=== PATIENT | male | born 1935 | race Asian ===

== ENCOUNTER 2018-10-28 15:39 | Inpatient (IN) | payer OTHER, MEDICAID ==
[~2018-10-28] VITALS: Ht 177.8 cm; Wt 67.6 kg
--- NOTE | 2018-10-28 15:42 | NUR ---
PT BIBA TO BED 10.
[2018-10-28 15:44] VITALS: BP 125/51
--- NOTE | 2018-10-28 15:45 | NUR ---
PT BIBA FROM [facility] C/O CHEST PAIN SINCE 1PM TODAY. PT WITH HX OF DEMENTIA, PT STATES HE HAS PAIN BUT UNABLE TO ANSWER APPROPRIATELY THE LOCATION OF THE PAIN AND PAIN LEVEL. ORIENTED TO NAME AND DATE. PER EMS PT AT [facility]. NOTED LEFT SIDE WEAKNESS WITH PRIOR HX OF STROKE, EMS GIVEN DOSE OF NITRO AND IV FLUIDS, VVS, RR EVEN UNLABORED, ED MD DR. MONTEZ MADE AWARE, WILL CONTINUE TO MONITOR CLOSELY, BED IN LOWEST POSITION, BILATERAL SIDERAILS UP FOR SAFETY. PMH DEMENTIA, HTN, STROKE DNR
[2018-10-28] MEDS ORDERED: METO50TE2 GT (15:51)
[2018-10-28] MEDS ORDERED: DOXA2TAB1 PO (15:57)
[2018-10-28] MEDS ORDERED: CLOP75TA55 GT (15:58)
[2018-10-28] MEDS ORDERED: LOSA100T51 GT (15:59)
[2018-10-28] MEDS ORDERED: TRAZ-343 GT (15:59)
[2018-10-28] MEDS ORDERED: DOCU-299 GT (16:00)
[2018-10-28] MEDS ORDERED: ASPIRIN 81 MG TAB.CHEW PO ONE (16:30)
--- NOTE | 2018-10-28 16:39 | NUR ---
XRAY AT BEDSIDE
--- NOTE | 2018-10-28 16:41 | NUR ---
LAB AT BEDSIDE
--- NOTE | 2018-10-28 16:42 | NUR ---
LAB AT BEDSIDE FOR DRAW, RT AT BEDSIDE FOR ABG.
--- NOTE | 2018-10-28 16:42 | NUR ---
PT UNABLE TO URINATE ON HIS OWN, WILL PROCEDE WITH STRAIGHT CATH.
--- NOTE | 2018-10-28 16:57 | NUR ---
# 14 FR Urinary catheter inserted utilizing sterile technique. Immediate return of 100 ml YELLOW urine noted. Urine sample collected and sent to lab. Pt tolerated procedure WELL.
[2018-10-28 17:05] LABS: BASOPHILS % (AUTO) 0.5 % (0.0-2.0); EOSINOPHILS # (AUTO) 0.3 K/uL (0-0.4); EOSINOPHILS % (AUTO) 4.9 % (0.0-4.0); HEMATOCRIT 34.4 % (36-52); HEMOGLOBIN 11.5 g/dL (12.0-18.0); LYMPHOCYTES # (AUTO) 1.3 K/uL (2.0-11.5); LYMPHOCYTES % (AUTO) 18.9 % (20.5-51.1); MEAN CORPUSCULAR HEMOGLOBIN 32 pg (27-31); MEAN CORPUSCULAR HGB CONC 34 g/dL (33-37); MEAN CORPUSCULAR VOLUME 94.1 fL (80-94); MONOCYTES # (AUTO) 0.6 K/uL (0.8-1.0); MONOCYTES % (AUTO) 9.6 % (1.7-9.3); NEUTROPHILS # (AUTO) 4.4 K/uL (1.8-7.7); NEUTROPHILS % (AUTO) 66.1 % (42.2-75.2); PLATELET COUNT (AUTO) 206 K/uL (140-450); RED BLOOD CELL COUNT(AUTO) 3.65 MIL/uL (4.20-6.10); RED CELL DISTRIBUTION WIDTH 13.2 % (11.6-13.7); WHITE BLOOD COUNT (AUTO) 6.6 K/uL (4.8-10.8)
[2018-10-28 17:16] LABS: ANION GAP 7.8 (8-16); CHLORIDE 104 mmol/L (98-107); CREATININE 1.4 mg/dL (0.7-1.3); GLUCOSE 103 mg/dL (74-106); POTASSIUM 4.8 mmol/L (3.5-5.1); SODIUM SERUM 139 mmol/L (136-145); UREA NITROGEN, BLOOD 32 mg/dL (7-18)
[2018-10-28 17:22] LABS: ALBUMIN 3.2 g/dL (3.4-5.0); ASPARTATE AMINOTRANSFERASE 17 U/L (15-37); TOTAL BILIRUBIN 0.4 mg/dL (0.0-1.0)
--- NOTE | 2018-10-28 18:00 | NUR ---
PT IN BED ACCIDENTALLY PULLED OUT IV TO LEFT WRIST, ESTABLISHED NEW IV SITE TO RIGHT FOREARM, TOLERATED PROCEDURE WELL, PT IN STABLE CONDITION. WILL CONTINUE TO MONITOR CLOSELY.
[2018-10-28 18:16] LABS: APPEARANCE,URINE HAZY (CLEAR); BILIRUBIN,URINE NEGATIVE (NEGATIVE); BLOOD, URINE TRACE-I (NEGATIVE); COLOR,URINE YELLOW (YELLOW); LEUKOCYTE ESTERASE ,URINE 3+ (NEGATIVE); NITRITE, URINE POSITIVE (NEGATIVE); PH,URINE 7.5 (5.0-9.0); UGLUCOSE NEGATIVE (NEGATIVE)
[2018-10-28] MEDS ORDERED: FAMOTIDINE 20 MG/2 ML VIAL IV PRN (18:25)
[2018-10-28] MEDS ORDERED: ONDANSETRON 4 MG/2 ML VIAL IM/IVP PRN (18:25)
[2018-10-28] MEDS ORDERED: DOCUSATE SODIUM 100 MG GELCAP PO PRN (18:25)
[2018-10-28] MEDS ORDERED: ACETAMINOPHEN 325 MG TAB PO PRN (18:25)
[2018-10-28 18:34] LABS: RBC,URINE 0-5 /HPF (0-5); WBC,URINE TOO MANY TO COUNT /HPF (0-5)
[2018-10-28] MEDS ORDERED: MELATONIN 3 MG TAB PO PRN (18:40)
[2018-10-28] MEDS ORDERED: MEDICATION REC. PHARMACY CONS. 1 EA MISC MC PRN (18:40)
[2018-10-28 19:01] LABS: CHOL/HDL RATIO 4.7 (1-4.5); FREE T4 (FREE THYROXINE) 0.88 ng/dL (0.76-1.46); MAGNESIUM 2.1 mg/dL (1.8-2.4); PHOSPHORUS 4.2 mg/dL (2.5-4.9); THYROID STIMULATING HORMONE 0.21 uIU/mL (0.34-3.74)
--- NOTE | 2018-10-28 19:10 | NUR ---
PT RESTING IN BED, VVS AT THIS TIME. WILL CONTINUE TO MONITOR CLOSELY.
--- NOTE | 2018-10-28 19:25 | NUR ---
Patient will be admitted to care of DR. IMLES. Admited to [facility]. Will go to room 110A. Belongings list completed. BEDSIDE Report GIVEN to LUÍS MARROQUIN.
--- NOTE | 2018-10-28 19:30 | NUR ---
RECEIVED BEDSIDE REPORT FROM WANT AD RECEIVER, PATIENT AWAKE, AAOX1 TO PERSON. IV IN RIGHT FA 20 G SL. PATIENT UNABLE TO MAKE NEEDS KNOWN. LUNG SOUNDS CLEAR, SB ON TELE MONITOR, SKIN INTACT, G-TUBE IN PLACE. V/S STABLE, ON RA. LEFT SIDED WEAKNESS NOTED. PLACED ON FALL PRECAUTIONS, BED IN LOWEST POSITION. WILL CONTINUE TO MONITOR.
[2018-10-28] MEDS ORDERED: METOPROLOL 25 MG TAB GT SCH (21:00)
[2018-10-28] MEDS ORDERED: DOCUSATE SODIUM 100 MG GELCAP PO SCH (21:00)
[2018-10-28] MEDS ORDERED: LACTOBACILLUS RHAMNOSUS GG 1 EACH CAP PO SCH (21:00)
[2018-10-28] MEDS ORDERED: LACTOBACILLUS RHAMNOSUS GG 1 EACH CAP GT SCH (21:30)
--- NOTE | 2018-10-28 21:30 | NUR ---
DUE MEDICATIONS PROVIDED, EDUCATION REGARDING SIDE EFFECTS GIVEN
[2018-10-28] MEDS: NACL 0.9% 1,000 ML IV SCH (21:34)
[2018-10-28] MEDS: DOCUSATE 100 MG/10 ML UDC GT SCH (21:34)
[2018-10-28] MEDS ORDERED: cefTRIAXone 1,000 MG VIAL ONE (21:43)
--- NOTE | 2018-10-28 22:30 | NUR ---
CALLED [facility] SPOKE WITH CHARGE NURSE KAYLA REGARDING PATIENTS HISTORY. ACCORDING TO RN JUANI PATIENTS VACCINATION STATUS, HISTORY OF INFECTIOUS DISEASE, HISTORY OF BLOOD TRANSFUSION, FALLS, SPIRITUAL CONSIDERATIONS IS UNKNOWN
[2018-10-29] VITALS: BP 130/58
--- NOTE | 2018-10-29 | NUR ---
INCREASED FEEDING TO 25 ML/HR PATIENT TOLERATING WELL
--- NOTE | 2018-10-29 02:00 | NUR ---
SLEEPING CALL LIGHT WITHIN REACH
[2018-10-29 04:00] VITALS: BP 127/41
[2018-10-29 06:57] LABS: BASOPHILS % (AUTO) 0.6 % (0.0-2.0); EOSINOPHILS # (AUTO) 0.3 K/uL (0-0.4); HEMATOCRIT 35.4 % (36-52); HEMOGLOBIN 12.1 g/dL (12.0-18.0); LYMPHOCYTES # (AUTO) 1.5 K/uL (2.0-11.5); MEAN CORPUSCULAR HEMOGLOBIN 32 pg (27-31); MEAN CORPUSCULAR HGB CONC 34 g/dL (33-37); MEAN CORPUSCULAR VOLUME 93.6 fL (80-94); MONOCYTES # (AUTO) 0.8 K/uL (0.8-1.0); MONOCYTES % (AUTO) 9.9 % (1.7-9.3); NEUTROPHILS # (AUTO) 5.2 K/uL (1.8-7.7); NEUTROPHILS % (AUTO) 66.5 % (42.2-75.2); PLATELET COUNT (AUTO) 210 K/uL (140-450); RED BLOOD CELL COUNT(AUTO) 3.78 MIL/uL (4.20-6.10); RED CELL DISTRIBUTION WIDTH 13.2 % (11.6-13.7); WHITE BLOOD COUNT (AUTO) 7.9 K/uL (4.8-10.8)
--- NOTE | 2018-10-29 07:00 | NUR ---
WILL ENDORSED PATIENT TO DAY SHIFT NURSE, PATIENT STABLE.
[2018-10-29 07:03] LABS: ANION GAP 12.7 (8-16); CARBON DIOXIDE 27.7 mmol/L (21-32); CHLORIDE 103 mmol/L (98-107); CREATININE 1.2 mg/dL (0.7-1.3); GLUCOSE 120 mg/dL (74-106); POTASSIUM 4.4 mmol/L (3.5-5.1); SODIUM SERUM 139 mmol/L (136-145); UREA NITROGEN, BLOOD 27 mg/dL (7-18)
--- NOTE | 2018-10-29 07:25 | NUR ---
RECEIVED BEDSIDE REPORT FROM WORKFORCE STAFFING ADVISOR NURSE FOR CONTINUITY OF CARE. PATIENT AWAKE AND RESTING ON BED. PATIENT PULLED OFF HIS GOWN, INSTRUCTED PATIENT NOT TO TAKE OFF HIS GOWN FOR PRIVACY. PATIENT IS AAOX2 TO NAME, AND PLACE. PT SPEAKS MALAY AND ABLE TO UNDERSTAND SOME LAO. PATIENT HAS HARD OF HEARING, WILL POST SIGN. FLACC 0. RESPIRATION EVEN AND UNLABORED ON RA. NO SIGNS OF DISTRESS NOTED. IV ON RFA 20G, CLEAN AND INTACT, INFUSING PER MD ORDER. G-TUBE IN PLACE, AND JEVITY 1.2 RUNNING AT 40 ML/HR. SKIN CLEAN AND DRY. DUE TO PATIENT'S MENTAL STATUS CONDITION, PATIENT IS BEDREST AND FALL RISK PROTOCOL INITIALED. PATIENT IS INCONTINENT. DISCUSSED PLAN OF CARE WITH PATIENT, REINFORCEMENT NEEDED. SAFETY MEASURES IN PLACE. BED IN LOW POSITION AND CALL LIGHT WITHIN REACH. BED ALARM MALFUNCTIONED. TELE MONITOR ATTACHED. INSTRUCTED PATIENT TO USE THE CALL LIGHT FOR ANY ASSISTANCE AND PATIENT VERBALIZED OK.
[2018-10-29 08:00] VITALS: BP 180/86
[2018-10-29] MEDS: LACTOBACILLUS RHAMNOSUS GG 1 EACH CAP GT SCH ×2 (08:04→21:57)
[2018-10-29] MEDS: LOSARTAN 50 MG TAB GT SCH (08:04)
[2018-10-29] MEDS: DOCUSATE 100 MG/10 ML UDC GT SCH ×2 (08:04→21:56)
[2018-10-29] MEDS: DOXAZOSIN 2 MG TAB PO SCH (08:05)
[2018-10-29] MEDS: CLOPIDOGREL 75 MG TAB GT SCH (08:05)
[2018-10-29] MEDS: traZODone 50 MG TAB GT SCH (08:05)
--- NOTE | 2018-10-29 08:06 | NUR ---
CHECKED VITAL SIGNS, AND PT'S BP 180/86 AND PULSE. ADMINISTERED AM BP [place] MED AND AM MEDS PER MD ORDER VIA G-TUBE, CHECKED G-TUBE RESIDUAL AND RECEIVED 20ML, FLUSHED BEFORE AND AFTER MEDS ADMINISTRATION, PATIENT TOLERATED WELL. MEDS EDUCATION PROVIDED AT BEDSIDE, BUT PT UNABLE TO COMPREHEND AND REINFORCEMENT NEEDED. SAFETY MEASURES IN PLACE. BED IN LOW POSITION AND CALL LIGHT WITHIN REACH. BED ALARM MALFUNCTION. TELE MONITOR ATTACHED.
--- NOTE | 2018-10-29 08:12 | NUR ---
NOTIFIED DR ALANIZ THAT PT HAS HIGH BP 180/86 AND PULSE 81, AND PT HAS TWO ORDER OF COLACE, ONE IS PO 100 MG, AND ANOTHER IN LIQUID [address] ALANIZ WAS AWARE OF HIGH BP. PER DR ALANIZ, GIVE THE COLACE 100 MG LIQUID VIA G-TUBE AND SHE WILL CANCEL THE DUPLICATE ORDER FOR PO. WILL ADMINISTER AM BP MEDS PER MD ORDER.
[2018-10-29 08:17] LABS: FOLIC ACID > 20.00 ng/mL (>3.0)
--- NOTE | 2018-10-29 08:19 | NUR ---
DR BRYANT IS ASSESSING AND TALKING TO PATIENT AT BEDSIDE. NO SIGNS OF DISTRESS NOTED. SAFETY MEASURES IN PLACE. TELE MONITOR ATTACHED.
--- NOTE | 2018-10-29 08:46 | NUR ---
PATIENT HAS BEEN SCREENED AND CATEGORIZED HIGH NUTRITION RISK. PATIENT WILL BE SEEN WITHIN 1-2 DAYS OF ADMISSION. 10/29/18-10/30/[address]
--- NOTE | 2018-10-29 09:35 | NUR ---
RECHECKED PT'S BP AND RECEIVED 142/70 PULSE 75, PT AWAKE AND RESTING ON BED AT THIS TIME. RESPIRATION EVEN AND UNLABORED ON RA. FLACC 0. NO SIGNS OF DISTRESS NOTED. SAFETY MEASURE IN PLACE. BED IN LOW POSITION AND CALL LIGHT WITHIN REACH. TELE MONITOR ATTACHED.
[2018-10-29] MEDS ORDERED: METOPROLOL 25 MG TAB GT SCH (10:43)
[2018-10-29] MEDS: NACL 0.9% 1,000 ML IV SCH (11:04)
--- NOTE | 2018-10-29 11:04 | NUR ---
CHECKED PT'S BP AND RECEIVED 137/66 PULSE 64, ADMINISTERED MED PER MD ORDER VIA G-TUBE,FLUSHED BEFORE AND AFTER MED ADMINISTERED. PATIENT TOLERATED WELL. PATIENT AWAKE AND RESTING ON BED AT THIS. NO SIGN OF DISTRESS NOTED. SAFETY MEASURES IN PLACE. BED IN LOW POSITION AND CALL LIGHT WITHIN REACH. TELE MONITOR ATTACHED.
[2018-10-29 12:00] VITALS: BP 149/61
--- NOTE | 2018-10-29 13:25 | NUR ---
PATIENT RESTING ON BED. AROUSABLE TO VOICE. EVEN AND UNLABORED CHEST RISES NOTED. NO SIGNS OF DISTRESS NOTED. TELE MONITOR IN PLACE. BED IN LOW POSITION AND CALL LIGHT WITHIN REACH.
--- NOTE | 2018-10-29 15:08 | NUR ---
S.T. BEDSIDE SWALLOW EVAL COMPLETED See report for details. Pt presents w/ moderate oropharyngeal dysphagia c/b L facial droop and weakness, inadequate mastication of soft solids with pocketing on L side and diminished sensation of L face, delayed pharyngeal swallow initiation and residue after swallow on L side of face and oral cavity. Behaviorally, pt is confused and both uninterested and refuses P.O. trials. It is doubtful pt will be able to maintain P.O. intake on a regular basis in a safe manner. Recommend: 1) Continue non-oral means of nutrition/hydration/meds (i.e., G-tube) as primary means of intake. 2) Small amounts of puree and/or thin liquids for ORAL GRATIFICATION ONLY; given by 1:1 feeder (nsg) with strict aspiration precautions. Pt demonstrates poor rehab potential. No further tx indicated at this time. DC to nsg care. Endorsed to LUÍS Pandya. Time [id number]
--- NOTE | 2018-10-29 15:50 | NUR ---
FOUND PATIENT SITTING ON THE FLOOR WITH HAND HOLDING THE SIDE RAIL. ASSESSED PATIENT'S BACK AND SACRAL AREA AND NO INJURY FOUND. POSITIONED PATIENT BACK ON BED, EDUCATION PT NOT TO GET OUT OF BED DUE TO UNSTEADY GAIT, PATIENT SAID OK. VITAL SIGNS TAKEN. DR ALANIZ NOTIFIED. REFEREED TO INCIDENT REPORT.
[2018-10-29 16:00] VITALS: BP 154/56
--- NOTE | 2018-10-29 16:10 | NUR ---
NOTIFIED PATIENT'S DAUGHTER DAVID ON REGARD OF INCIDENT. DAVID WAS AWARE. ANSWERED ALL DAVID'S QUESTIONS.
--- NOTE | 2018-10-29 16:45 | NUR ---
PATIENT AWAKE AND RESTING ON BED. RESPIRATION EVEN AND UNLABORED ON RA. DENIED PAIN AND DIZZINESS. NO SIGNS OF DISTRESS NOTED. G-TUBE IS RUNNING AT 65 ML/HR. TELE MONITOR ATTACHED. SAFETY MEASURES IN PLACE. BED IN LOW POSITION AND CALL LIGHT WITHIN REACH. BED ALARM ACTIVATED.
--- NOTE | 2018-10-29 17:40 | NUR ---
PATIENT AWAKE ON BED. DENIED PAIN AND NAUSEA, VOMITING. CHECKED G-TUBE RESIDUAL AND RECEIVED < 10ML. CONTINUE RUNNING AT 65 ML/HR. NO SIGNS OF DISTRESS NOTED. SAFETY MEASURES IN PLACE. BED IN LOW POSITION AND CALL LIGHT WITHIN REACH. BED ALARM ACTIVATED.
--- NOTE | 2018-10-29 19:25 | NUR ---
RECEIVED BEDSIDE REPORT FROM DAY SHIFT NURSE FOR CONTINUITY OF CARE. PATIENT AWAKE AND RESTING ON BED. PATIENT IS AAOX2 TO NAME, AND PLACE. PT SPEAKS [place] AND ABLE TO UNDERSTAND SOME LIBERIAN. PATIENT HAS HARD OF HEARING, FLACC 0. NO S/S OF SOB ON RA. IV ON RFA 20G, PATENT, INTACT, AND ASYMPTOMATIC. G-TUBE IN PLACE, AND JEVITY 1.2 RUNNING AT 65 ML/HR. SKIN INTACT, WARM AND DRY TO TOUCH. FALL RISK PROTOCOL IN PLACE. PATIENT IS INCONTINENT. SAFETY MEASURES IN PLACE. BED IN LOW POSITION AND CALL LIGHT WITHIN REACH. INSTRUCTED PATIENT TO USE THE CALL LIGHT FOR ANY ASSISTANCE.
--- NOTE | 2018-10-29 19:30 | NUR ---
ENDORSED PATIENT AT BEDSIDE TO V BELT COVERER NURSE FOR CONTINUITY OF CARE. PATIENT AWAKE AND RESTING ON BED AT THIS TIME. AROOUSABLE TO VOICE. NO SIGNS OF DISTRESS NOTED. TELE MONITOR ATTACHED. PATIENT IS IN STABLE CONDITION. SAFETY MEASURES IN PLACE. BED IN LOW POSITION AND CALL LIGHT WITHIN REACH. BED ALARM ACTIVATED.
[2018-10-29 20:00] VITALS: BP 164/67
--- NOTE | 2018-10-29 21:56 | NUR ---
GIVEN COLACE, CULTURELLE, METOPROLOL, AND ROCEPHIN ORDERED. PT TOLERATED WELL. WILL CONTINUE TO MONITOR.
[2018-10-29] MEDS: METOPROLOL 25 MG TAB GT SCH (21:57)
--- NOTE | 2018-10-29 23:55 | NUR ---
VS CHECKED, WITHIN PT'S BASELINE. BED IN LOW POSITION, CALL LIGHT WITHIN REACH. WILL CONTINUE TO MONITOR.
[2018-10-30] VITALS: BP 150/57
--- NOTE | 2018-10-30 01:55 | NUR ---
PT SLEEPING IN BED COMFORTABLY. NO ACUTE DISTRESS NOTED. BED IN LOW POSITION. WILL CONTINUE TO MONITOR.
[2018-10-30] MEDS: NACL 0.9% 1,000 ML IV SCH (03:43)
[2018-10-30 04:00] VITALS: BP 159/92
--- NOTE | 2018-10-30 04:00 | NUR ---
VS CHECKED, WITHIN PT'S BASELINE, CHANGED GTUBE FORMULA, 30ML OF RESIDUAL NOTED. PT TOLERATED WELL.
--- NOTE | 2018-10-30 06:31 | NUR ---
PT SLEEPING IN BED COMFORTABLY. NO S/S OF SOB NOTED. BED IN LOW POSITION.
--- NOTE | 2018-10-30 07:15 | NUR ---
RECEIVED ENDORSEMENT FROM ASSOCIATE ATTORNEY NURSE. PATIENT IS AAOX1, BULGARIAN SPEAKING. RESPIRATIONS ARE EVEN AND UNLABORED ON ROOM AIR. FLACC 0. G-TUBE INTACT, PATENT, AND INFUSING CONTINUOS FEEDING. RIGHT FA 20G IV INTACT, PATENT, AND INFUSING IVF. PLAN OF CARE WAS REVIEWED WITH PATIENT, PATIENT VERBALIZED UNDERSTANDING. SAFETY MEASURES IN PLACE, CALL LIGHT WITHIN REACH. Addendum: 10/30/18 at 1107 by Anais Perdomo RN *PATIENT UNABLE TO VERBALIZE UNDERSTANDING.
[2018-10-30 07:41] LABS: BASOPHILS % (AUTO) 0.6 % (0.0-2.0); EOSINOPHILS # (AUTO) 0.2 K/uL (0-0.4); EOSINOPHILS % (AUTO) 3.8 % (0.0-4.0); HEMOGLOBIN 11.4 g/dL (12.0-18.0); LYMPHOCYTES % (AUTO) 17.3 % (20.5-51.1); MEAN CORPUSCULAR HEMOGLOBIN 32 pg (27-31); MEAN CORPUSCULAR HGB CONC 34 g/dL (33-37); MEAN CORPUSCULAR VOLUME 93.2 fL (80-94); MONOCYTES # (AUTO) 0.6 K/uL (0.8-1.0); MONOCYTES % (AUTO) 9.9 % (1.7-9.3); NEUTROPHILS # (AUTO) 3.9 K/uL (1.8-7.7); NEUTROPHILS % (AUTO) 68.4 % (42.2-75.2); PLATELET COUNT (AUTO) 194 K/uL (140-450); RED BLOOD CELL COUNT(AUTO) 3.54 MIL/uL (4.20-6.10); RED CELL DISTRIBUTION WIDTH 13.4 % (11.6-13.7); WHITE BLOOD COUNT (AUTO) 5.8 K/uL (4.8-10.8)
[2018-10-30 07:46] LABS: ANION GAP 12.1 (8-16); CARBON DIOXIDE 26.2 mmol/L (21-32); CHLORIDE 106 mmol/L (98-107); CREATININE 1.1 mg/dL (0.7-1.3); GLUCOSE 119 mg/dL (74-106); POTASSIUM 4.3 mmol/L (3.5-5.1); SODIUM SERUM 140 mmol/L (136-145); UREA NITROGEN, BLOOD 22 mg/dL (7-18)
[2018-10-30 08:00] VITALS: BP 137/67
[2018-10-30 08:04] LABS: MAGNESIUM 2.1 mg/dL (1.8-2.4); PHOSPHORUS 3.7 mg/dL (2.5-4.9)
[2018-10-30] MEDS ORDERED: METOPROLOL 25 MG TAB GT SCH (09:00)
[2018-10-30] MEDS: LACTOBACILLUS RHAMNOSUS GG 1 EACH CAP GT SCH ×2 (09:27→21:25)
[2018-10-30] MEDS: DOXAZOSIN 2 MG TAB PO SCH (09:27)
[2018-10-30] MEDS: traZODone 50 MG TAB GT SCH (09:28)
[2018-10-30] MEDS: METOPROLOL 25 MG TAB GT SCH ×2 (09:28→21:25)
[2018-10-30] MEDS: CLOPIDOGREL 75 MG TAB GT SCH (09:28)
[2018-10-30] MEDS: DOCUSATE 100 MG/10 ML UDC GT SCH ×2 (09:29→21:25)
[2018-10-30] MEDS: LOSARTAN 50 MG TAB GT SCH (09:36)
--- NOTE | 2018-10-30 09:37 | NUR ---
ADMINISTERED SCHEDULED MEDICATIONS. G-TUBE RESIDUAL NONE. PATIENT TOLERATING WELL. PATIENT TOLERATING WELL. NO OTHER NEEDS AT THIS TIME, WILL CONTINUE TO MONITOR.
--- NOTE | 2018-10-30 11:36 | NUR ---
PATIENT SLEEPING. VISIBLE RISE AND FALL OF CHEST. FLACC 0. NO OTHER NEEDS AT THIS TIME, WILL CONTINUE TO MONITOR.
--- NOTE | 2018-10-30 13:05 | NUR ---
PATIENT SLEEPING. VISIBLE RISE AND FALL OF CHEST. FLACC 0. NO OTHER NEEDS AT THIS TIME, WILL CONTINUE TO MONITOR.
--- NOTE | 2018-10-30 13:28 | NUR ---
10/30/18 RD INITIAL ASSESSMENT COMPLETED PLEASE REFER TO NUTRITION ASSESSMENT UNDER CARE ACTIVITY FOR ESTIMATED NUTRITIONAL NEEDS. 1. CONTINUE JEVITY @ 65 ML/HR X 24HR -THIS IS PROVIDING 1560 ML, 1872 KCAL, 86 GM OF PROTEIN 2. CONTINUE FREE WATER FLUSH OF [address] TO FOLLOW-UP 2-3 DAYS, HIGH RISK VIKRAM JOYNER, RD
--- NOTE | 2018-10-30 15:10 | NUR ---
PATIENT MOVED TO DIFFERENT ROOM. PATIENT ATTEMPTING TO GET UP. REMINDED PATIENT TO STAY IN BED. BED ALARM IS ON. FLACC 0. NO OTHER NEEDS AT THIS TIME, WILL CONTINUE TO MONITOR.
--- NOTE | 2018-10-30 15:40 | NUR ---
D/C PLANNING RECEIVED D/C ORDER TO D/C PATIENT BACK TO [facility] FOR D/C PLAN TOMORROW 10/31/18. [place] [facility] [place] # [phone] PHONE NUMBER IS [phone]. AWAITING REVIEW AND [place] [facility] [place]
[2018-10-30 16:00] VITALS: BP 155/59
--- NOTE | 2018-10-30 17:56 | NUR ---
PATIENT SLEEPING, EASILY AROUSABLE. FLACC 0. NO OTHER NEEDS AT THIS TIME, WILL CONTINUE TO MONITOR.
--- NOTE | 2018-10-30 19:22 | NUR ---
RECEIVED PATIENT REPORT AT BEDSIDE. PATIENT IS ASLEEP BUT IS EASILY AROUSABLE. PT ON ROOM AIR. NO S/S OF DISTRESS AT THIS TIME. G-TUBE WITH CONTINUOUS FEEDING IN PLACE. BED LOWERED WITH CALL LIGHT WITHIN REACH. WILL CONTINUE TO MONITOR
--- NOTE | 2018-10-30 19:22 | NUR ---
ENDORSED TO SLAT PICKLER NURSE FOR CONTINUITY OF CARE. PATIENT IS STABLE AT THIS TIME.
[2018-10-30 20:00] VITALS: BP 145/95
--- NOTE | 2018-10-30 21:25 | NUR ---
ADMINISTERED MEDICATIONS VIA G-TUBE. NO RESIDUALS NOTED. PT TOLERATED WELL
--- NOTE | 2018-10-31 02:52 | NUR ---
PT ASLEEP IN BED. NO S/S OF DISTRESS NOTED
[2018-10-31] MEDS: NACL 0.9% 1,000 ML IV SCH ×3 (04:05→21:38)
[2018-10-31 04:11] VITALS: BP 151/78
--- NOTE | 2018-10-31 05:00 | NUR ---
RECEIVED PT FROM LATESHA STALEY PT IA AOX1 LEFT SIDE WEAKNES IV ON RT AC # 20 SPONGE BATH DONE REPOSITIONED INITIAL ASSESSMENT DONE
--- NOTE | 2018-10-31 06:54 | NUR ---
PT WILL BE ENDORSED TO DAY SHIFT NURSE FOR CONTINUE CARE
--- NOTE | 2018-10-31 07:25 | NUR ---
RECEIVED BEDSIDE REPORT FROM LUÍS BERG. PT STABLE, SLEEPING, BUT EASILY AROUSABLE. NO SIGNS OF DISTRESS NOTED. NO REDNESS, SWELLING, OR INFLAMMATION NOTED ON IV SITE. CALL BALL WITHIN REACH. BED IN LOWEST POSITION, BED ALARM ON. 1:1 SITTER AT THE BEDSIDE. SAFETY MEASURES IN PLACE. PLAN OF CARE REVIEWED.
[2018-10-31 08:00] VITALS: BP 158/59
--- NOTE | 2018-10-31 08:20 | NUR ---
SPOKE WITH PT'S DAUGHTER ON THE TELEPHONE REGARDING PT'S PLAN OF CARE.
[2018-10-31] MEDS: DOCUSATE 100 MG/10 ML UDC GT SCH ×2 (10:07→20:23)
[2018-10-31] MEDS: LOSARTAN 50 MG TAB GT SCH (10:07)
[2018-10-31] MEDS: traZODone 50 MG TAB GT SCH (10:08)
[2018-10-31] MEDS: CLOPIDOGREL 75 MG TAB GT SCH (10:08)
[2018-10-31] MEDS: METOPROLOL 25 MG TAB GT SCH ×2 (10:09→21:00)
[2018-10-31] MEDS: DOXAZOSIN 2 MG TAB PO SCH (10:10)
--- NOTE | 2018-10-31 10:40 | NUR ---
NO RESIDUAL ASPIRATED FROM G-TUBE. ADMINISTERED SCHEDULED MEDICATIONS, PT TOLERATED WELL. NO OTHER NEEDS AT THIS TIME. Addendum: 10/31/18 at 1056 by Kirsten Pierson RN HR RECHECKED, 65.
[2018-10-31] MEDS: LACTOBACILLUS RHAMNOSUS GG 1 EACH CAP GT SCH ×2 (10:42→20:23)
[2018-10-31 10:58] LABS: BASOPHILS % (AUTO) 0.4 % (0.0-2.0); EOSINOPHILS # (AUTO) 0.2 K/uL (0-0.4); EOSINOPHILS % (AUTO) 3.6 % (0.0-4.0); HEMATOCRIT 32.9 % (36-52); HEMOGLOBIN 11.2 g/dL (12.0-18.0); LYMPHOCYTES # (AUTO) 1.2 K/uL (2.0-11.5); LYMPHOCYTES % (AUTO) 19.9 % (20.5-51.1); MEAN CORPUSCULAR HEMOGLOBIN 32 pg (27-31); MEAN CORPUSCULAR HGB CONC 34 g/dL (33-37); MEAN CORPUSCULAR VOLUME 93.9 fL (80-94); MONOCYTES # (AUTO) 0.5 K/uL (0.8-1.0); MONOCYTES % (AUTO) 9.1 % (1.7-9.3); NEUTROPHILS # (AUTO) 3.9 K/uL (1.8-7.7); PLATELET COUNT (AUTO) 192 K/uL (140-450); WHITE BLOOD COUNT (AUTO) 5.8 K/uL (4.8-10.8)
--- NOTE | 2018-10-31 11:45 | NUR ---
PER ANDREW, CONFIRMED [facility] BED 30B FOR TRANSFER BACK TOMORROW WEDNESDAY 11/01.
--- NOTE | 2018-10-31 12:05 | NUR ---
PT STABLE, SLEEPING, BUT EASILY AROUSABLE. NO SIGNS OF DISTRESS NOTED.
[2018-10-31 12:11] LABS: ANION GAP 13.8 (8-16); CARBON DIOXIDE 25.6 mmol/L (21-32); CHLORIDE 105 mmol/L (98-107); CREATININE 1.1 mg/dL (0.7-1.3); GLUCOSE 131 mg/dL (74-106); POTASSIUM 4.4 mmol/L (3.5-5.1); SODIUM SERUM 140 mmol/L (136-145); UREA NITROGEN, BLOOD 21 mg/dL (7-18)
--- NOTE | 2018-10-31 14:23 | NUR ---
PT REPOSITIONED, LINENS AND GOWN CHANGED. PT STABLE.
[2018-10-31 16:00] VITALS: BP 108/72
--- NOTE | 2018-10-31 16:20 | NUR ---
VITAL SIGNS TAKEN, PT STABLE. NO SIGNS OF DISTRESS NOTED.
[2018-10-31] MEDS ORDERED: LEVOFLOXACIN 500 MG/D5W PREMIX 100 ML IV SCH (18:00)
--- NOTE | 2018-10-31 18:48 | NUR ---
TUBE FEEDING CHANGED. ADMINISTERED SCHEDULED LEVAQUIN PER MD ORDER, PT TOLERATED WELL. NO OTHER NEEDS AT THIS TIME.
--- NOTE | 2018-10-31 19:13 | NUR ---
ENDORSED PT TO LUÍS LANDIS FOR CONTINUITY OF CARE. PT STABLE.
--- NOTE | 2018-10-31 19:15 | NUR ---
RECEIVED REPORT FROM DAY SHIFT NURSE. AAOX1. NO C/O PAIN. NO RESP DISTRESS NOTED. ON ROOM AIR. IV TO RIGHT AC #20G, PATENT AND INTACT. G-TUBE IN PLACE WITH FEEDING JEVITY 1.2 AT 65 ML/HR, INFUSING WELL. FALL PRECAUTION IN PLACE. SITTER AT BEDSIDE.
[2018-10-31 20:00] VITALS: BP 162/55
--- NOTE | 2018-10-31 21:00 | NUR ---
PT'S V/S 162/55, HR 52. DR. WOMACK MADE AWARE AND ORDERED TO HOLD LOPRESSOR 25 MG PO DUE AT 2100.
--- NOTE | 2018-10-31 21:30 | NUR ---
GT RESIDUAL 0 ML. DUE MEDS GIVEN. PT TOLERATED WELL. ASPIRATION AND FALL PRECAUTION IN PLACE.
[2018-11-01 00:30] VITALS: BP 176/65
--- NOTE | 2018-11-01 00:50 | NUR ---
PT BP 176/65, HR 60. DR. WOMACK MADE AWARE, NO NEW ORDER. FLACC 0. NO RESP DISTRESS NOTED.
--- NOTE | 2018-11-01 03:20 | NUR ---
PT SLEEPING BUT WAKES EASILY. PT TOLERATING FEEDING WELL. PT KEPT DRY AND COMFORTABLE. NO S/S OF PAIN OR SOB. ASPIRATION AND FALL PRECAUTION IN PLACE. CALL LIGHT WITHIN REACH.
--- NOTE | 2018-11-01 05:45 | NUR ---
RIGHT FA IV INFILTRATED. REMOVED CANNULA, TIP INTACT. INSERTED NEW IV LINE TO RIGHT HAND #22G. GOOD FLUSH AND BLOOD RETURN. PT TOLERATED PROCEDURE WELL.
--- NOTE | 2018-11-01 07:20 | NUR ---
RECEIVED REPORT FROM CAGE SHIFT MANAGER NURSE. PATIENT IS SLEEPING IN BED, ON ROOM AIR. NO SIGNS OF RESPIRATORY DISTRESS. A&O X1. IV TO RIGHT HAND 22G WITH NS RUNNING @60ML/HR. WILL CONTINUE TO MONITOR.
--- NOTE | 2018-11-01 07:20 | NUR ---
ENDORSED PT TO DAY SHIFT NURSE. PT IN STABLE CONDITION.
[2018-11-01 08:00] VITALS: BP 167/58
--- NOTE | 2018-11-01 08:00 | NUR ---
Received report from LUÍS Zapien. Pt resting in bed, HOB about 30, ongoing GT feeding Jevity @ 65ml/hr. Right hand IV intact with ongoing NS @ 60 ml/hr. Call light within reach.
[2018-11-01] MEDS: DOXAZOSIN 2 MG TAB PO SCH (09:09)
[2018-11-01] MEDS: DOCUSATE 100 MG/10 ML UDC GT SCH (09:09)
[2018-11-01] MEDS: traZODone 50 MG TAB GT SCH (09:09)
[2018-11-01] MEDS: LACTOBACILLUS RHAMNOSUS GG 1 EACH CAP GT SCH (09:10)
[2018-11-01] MEDS: CLOPIDOGREL 75 MG TAB GT SCH (09:10)
[2018-11-01] MEDS: LOSARTAN 50 MG TAB GT SCH (09:10)
[2018-11-01] MEDS: METOPROLOL 25 MG TAB GT SCH (09:10)
--- NOTE | 2018-11-01 09:15 | NUR ---
Daughter at bedside states that pt yelled in pain when she moved the pt's left wrist. Lef hand & wrist with mild swelling, slight wincing noted with gentle PROM. Dr Jimenes notified. Per physician, he will come to see pt.
[2018-11-01] MEDS ORDERED: METO25TA GT (10:02)
[2018-11-01] MEDS ORDERED: LACT10CA GT (10:02)
[2018-11-01] MEDS ORDERED: LEVO500T2 PO (10:02)
[2018-11-01 10:04] LABS: BASOPHILS % (AUTO) 0.5 % (0.0-2.0); EOSINOPHILS # (AUTO) 0.1 K/uL (0-0.4); EOSINOPHILS % (AUTO) 1.7 % (0.0-4.0); HEMATOCRIT 32.6 % (36-52); HEMOGLOBIN 11.2 g/dL (12.0-18.0); LYMPHOCYTES # (AUTO) 1.2 K/uL (2.0-11.5); LYMPHOCYTES % (AUTO) 16.1 % (20.5-51.1); MEAN CORPUSCULAR HEMOGLOBIN 32 pg (27-31); MEAN CORPUSCULAR HGB CONC 34 g/dL (33-37); MEAN CORPUSCULAR VOLUME 93.5 fL (80-94); MONOCYTES # (AUTO) 0.7 K/uL (0.8-1.0); MONOCYTES % (AUTO) 9.9 % (1.7-9.3); NEUTROPHILS # (AUTO) 5.2 K/uL (1.8-7.7); NEUTROPHILS % (AUTO) 71.8 % (42.2-75.2); PLATELET COUNT (AUTO) 172 K/uL (140-450); RED BLOOD CELL COUNT(AUTO) 3.49 MIL/uL (4.20-6.10); RED CELL DISTRIBUTION WIDTH 13.2 % (11.6-13.7); WHITE BLOOD COUNT (AUTO) 7.2 K/uL (4.8-10.8)
[2018-11-01] MEDS ORDERED: ACET-1182 PO (10:06)
--- NOTE | 2018-11-01 10:30 | NUR ---
Left wrist & hand splinted with armboard. Pt denies any discomfort at this time.
[2018-11-01 10:34] LABS: ANION GAP 11.7 (8-16); CARBON DIOXIDE 25.4 mmol/L (21-32); CHLORIDE 105 mmol/L (98-107); CREATININE 1.1 mg/dL (0.7-1.3); GLUCOSE 130 mg/dL (74-106); POTASSIUM 4.1 mmol/L (3.5-5.1); SODIUM SERUM 138 mmol/L (136-145); UREA NITROGEN, BLOOD 18 mg/dL (7-18)
[2018-11-01] MEDS ORDERED: HALOPERIDOL IM 5 MG/ML VIAL IM SCH (12:30)
--- NOTE | 2018-11-01 13:00 | NUR ---
Spoke to Toña (daughter) & notified her [place] [facility] [place] [facility] ambulance with pick-up time at 1345. Verbalized understanding of discharge plans.
--- NOTE | 2018-11-01 13:30 | NUR ---
Report given to Robb STALEY from [facility].
--- NOTE | 2018-11-01 14:05 | NUR ---
Pt discharged at this time, left unit via gurney with 2 newspaper carriers supervisor from [facility] ambulance for transport to [facility]. Pt stable, no signs of distress. GT intact. All belongings with pt upon departure.
--- NOTE | 2018-11-01 14:30 | NUR ---
Report given to Robb STALEY from [facility]. Addendum: 11/01/18 at 1500 by Shalini Mercado RN Wrong time input. Time of even is 1330.
== END 2018-11-01 14:05 | DRG 205 ==
LOC: MED 15:39 → MTU 17:54
PROVIDERS: ADMIT General Practice; ATTEND General Practice
DX: M94.0 Chondrocostal junction syndrome [Tietze] (principal); N17.0 Acute kidney failure with tubular necrosis; E43 Unspecified severe protein-calorie malnutrition; G93.41 Metabolic encephalopathy; I10 Essential (primary) hypertension; D64.9 Anemia, unspecified; E78.5 Hyperlipidemia, unspecified; F32.9 Major depressive disorder, single episode, unspecified; K59.00 Constipation, unspecified; G30.9 Alzheimer's disease, unspecified; F02.80 Dementia in other diseases classified elsewhere, unspecified severity, without behavioral disturbance, psychotic disturbance, mood disturbance, and anxiety; R26.81 Unsteadiness on feet; Z68.21 Body mass index [BMI] 21.0-21.9, adult; Z86.73 Personal history of transient ischemic attack (TIA), and cerebral infarction without residual deficits
CPT/HCPCS: 36415; 36600; 70450; 71045; 73110; 80048; 80053; 81001; 82140; 82150; 82306; 82550; 82607; 82746; 82803; 83036; 83605; 83690; 83735; 83880; 84100; 84439; 84443; 84484; 85025; 85610; 85730; 87081; 87086; 87186; 92610; 93005; 97110; 97161-GP; 97530; 99285; C1758; J0696; J1630; J1644; J1956; J7030; J7060; Q0092

== ENCOUNTER 2019-08-06 00:03 | Inpatient (IN) | payer OTHER, SELFPAY ==
[~2019-08-06] VITALS: Ht 177.8 cm; Wt 81.2 kg
[~2019-08-06 00:03] MED LIST: ACET-1182 PO; CLOP75TA55 GT; DOCU-299 GT; DOXA2TAB1 PO; LACT10CA GT; LEVO500T2 PO; LOSA100T51 GT; METO25TA GT; TRAZ-343 GT
[2019-08-06 00:06] VITALS: BP 130/62
--- NOTE | 2019-08-06 00:10 | NUR ---
PPE WORN FOR ALL PT INTERACTION.
--- NOTE | 2019-08-06 00:10 | NUR ---
83 YO M ARUNA FROM [facility] FOR C/C OF "LABORED BREATHING." PER REPORT PT WAS HAVING ABDOMINAL BREATHING, 105 HR, AND A FEVER OF 100.5. PT RECIEVED 650 MG OF TYLENOL AT 2030. PTS BASELINE IS A&O X1. PER REPORT PT IS RECIEVING 500MG PO KEFLEX FOR ELEVATED WBC, UNABLE TO SAY SOURCE OF INFECTION. S1S2 HEARD. LUNG SOUNDS CLEAR THROUGHOUT. EQUAL CHEST RISE AND FALL. NO ACCESSORY MUSCLE USE UPON INSPIRATION AND EXPIRATION. BOWEL SOUNDS ACTIVE THROUGHOUT. PERIPHERAL PULSES ARE REGULAR AND EVEN. CAP REFILL <3. PT PLACED ON SAFETY DIRECTOR. VSS. BED LOCKED AND IN LOWEST POSITION. SIDE RAILSX2. MED HX: HEMIPLAGIA (L SIDE WEAKNESS), HTN, DYSPHAGIA, GENERALIZED WEAKNESS RX: UNKOWN NKA
--- NOTE | 2019-08-06 00:47 | NUR ---
ERMD AT BEDSIDE EVALUATING PT
--- NOTE | 2019-08-06 00:49 | NUR ---
EKG BEING DONE AT BEDSIDE.
[2019-08-06 00:57] LABS: BASOPHILS % (AUTO) 0.3 % (0.0-2.0); EOSINOPHILS % (AUTO) 0.3 % (0.0-4.0); HEMATOCRIT 31.2 % (36-52); HEMOGLOBIN 10.3 g/dL (12.0-18.0); LYMPHOCYTES # (AUTO) 1.6 K/uL (2.0-11.5); LYMPHOCYTES % (AUTO) 10.2 % (20.5-51.1); MEAN CORPUSCULAR HEMOGLOBIN 31 pg (27-31); MEAN CORPUSCULAR HGB CONC 33 g/dL (33-37); MEAN CORPUSCULAR VOLUME 92.8 fL (80-94); MONOCYTES % (AUTO) 6.3 % (1.7-9.3); NEUTROPHILS # (AUTO) 12.7 K/uL (1.8-7.7); NEUTROPHILS % (AUTO) 82.9 % (42.2-75.2); PLATELET COUNT (AUTO) 181 K/uL (140-450); RED BLOOD CELL COUNT(AUTO) 3.36 MIL/uL (4.20-6.10); RED CELL DISTRIBUTION WIDTH 13.8 % (11.6-13.7); WHITE BLOOD COUNT (AUTO) 15.3 K/uL (4.8-10.8)
[2019-08-06 01:05] LABS: APPEARANCE,URINE CLEAR (CLEAR); BILIRUBIN,URINE NEGATIVE (NEGATIVE); BLOOD, URINE NEGATIVE (NEGATIVE); COLOR,URINE YELLOW (YELLOW); LEUKOCYTE ESTERASE ,URINE 1+ (NEGATIVE); NITRITE, URINE NEGATIVE (NEGATIVE); UGLUCOSE NEGATIVE (NEGATIVE)
[2019-08-06 01:10] LABS: C-REACTIVE PROTEIN QUANT 4.1 mg/dL (0.0-0.9)
[2019-08-06 01:15] LABS: LACTATE DEHYDROGENASE 276 U/L (85-227)
[2019-08-06 01:16] LABS: PROTHROMBIN TIME 10.2 secs (10.8-13.4)
[2019-08-06 01:22] LABS: ALBUMIN 2.5 g/dL (3.4-5.0); ANION GAP 15.6 (8-16); ASPARTATE AMINOTRANSFERASE 46 U/L (15-37); CARBON DIOXIDE 19.1 mmol/L (21-32); CHLORIDE 117 mmol/L (98-107); GLUCOSE 137 mg/dL (74-106); POTASSIUM 4.7 mmol/L (3.5-5.1); SODIUM SERUM 147 mmol/L (136-145); TOTAL BILIRUBIN 0.3 mg/dL (0.0-1.0)
--- NOTE | 2019-08-06 01:30 | NUR ---
SPOKE WITH RASHIDA, CHARGE NURSE, FROM [facility] TO CLARIFY WHY PT WAS BROUGHT HERE. SHE STATES THAT PT WAS EXPERIENCING LABORED BREATHING WITH ABDOMINAL MUSCLE USE AT 1999 ON 08/04. PT HAD A FEVER OF 100.5 AND WAS GIVEN 650 OF TYLENOL. PT WAS SENT TO ER TO BE EVALUATED.
[2019-08-06 01:35] LABS: UREA NITROGEN, BLOOD 62 mg/dL (7-18)
[2019-08-06 01:40] LABS: RSV NEGATIVE (NEGATIVE)
[2019-08-06 01:41] LABS: RBC,URINE 0-5 /HPF (0-5)
--- NOTE | 2019-08-06 02:04 | NUR ---
PT IS ASLEEP AND RESTING COMFORTABLY IN BED. EQUAL CHEST RISE AND FALL. SAFETY MEASURES IN PLACE.
[2019-08-06] MEDS ORDERED: NACL 0.9% 1,000 ML IV ONE (02:15)
[2019-08-06] MEDS ORDERED: cefTRIAXone 1,000 MG VIAL ONE (02:22)
[2019-08-06] MEDS ORDERED: ACETAMINOPHEN 325 MG TAB PO PRN (02:50)
[2019-08-06] MEDS ORDERED: HYDROcodone/APAP 7.5/325 MG 1 TAB PO PRN (02:50)
[2019-08-06] MEDS ORDERED: ONDANSETRON 4 MG/2 ML VIAL IVP PRN (02:50)
[2019-08-06] MEDS ORDERED: MEGE40SU23 PO (03:23)
[2019-08-06] MEDS ORDERED: MOM GT (03:24)
[2019-08-06 03:27] LABS: CHOL/HDL RATIO 5.3 (1-4.5); MAGNESIUM 2.1 mg/dL (1.8-2.4); PHOSPHORUS 3.2 mg/dL (2.5-4.9); THYROID STIMULATING HORMONE 0.32 uIU/mL (0.34-3.74)
[2019-08-06] MEDS ORDERED: BISA-213 RC (03:28)
--- NOTE | 2019-08-06 03:36 | NUR ---
PT SLEEPING IN BED. EQUAL CHEST RISE AND FALL. SAFETY MEASURES IN PLACE. WILL CONTINUE TO MONITOR.
[2019-08-06 03:50] VITALS: BP 154/69
--- NOTE | 2019-08-06 03:50 | NUR ---
RECEIVED BEDSIDE REPORT FROM YOANNA STALEY. PATIENT IS AWAKE RESPIRATION EVEN UNLABORED ON ROOM AIR SATING 100%. NO DISTRESS NOTED. PATIENT IS ROMANIAN SPEAKING. ADMITTING DIAGNOSIS UTI AND R/O COVID. SKIN IS WARM AND DRY. IV PATENT AND INTACT. HEART RATE REGULAR. S1&S2 NOTED. LUNGS SOUNDS CLEAR ON AUSCULTATION. BOWEL SOUNDS PRESENTS IN ALL 4 QUADRANTS. ABDOMEN SOFT AND NON-TENDER. LAST BM 08/04/14. OBTAINED MEDICAL HISTORY FROM LUÍS PAGE FROM [facility]. ALL SAFETY MEASURES IN PLACE. ORIENT PATIENT TO ROOM AND CALL LIGHT. BED IS AT LOW POSITION. CALL LIGHT WITHIN REACH. WILL CONTINUE TO MONITOR.
--- NOTE | 2019-08-06 03:50 | NUR ---
[facility]. Admited to TELE. Will go to room 118. Belongings list completed. Report to TAMEKA STALEY.
--- NOTE | 2019-08-06 05:29 | NUR ---
CHECKED PATIENT. PATIENT SLEEPING RESPIRATION EVEN UNLABORED ON ROOM AIR. SATING 100% NO DISTRESS NOTED. WILL CONTINUE TO MONITOR.
[2019-08-06] MEDS: LEVOTHYROXINE 0.025 MG TAB PO SCH (05:36)
[2019-08-06] MEDS: DEXT 5% /NACL 0.9% 1,000 ML IV SCH ×2 (05:43→21:44)
--- NOTE | 2019-08-06 07:30 | NUR ---
RECEIVED PT IN STABLE CONDITION FROM FORMING PROCESS WORKER NURSE. TELE PT. WITH NO C/O ANY DISCOMFORT NOR PAIN NOTED. RESPIRATIONS EVEN AND UNLABORED. NO DISTRESS NOTED. PLAN OF CARE DISCUSSED AND VERBALIZED UNDERSTANDING. SAFETY MEASURES IN PLACE. FREQ ROUNDS NEEDED. BED IN LOW POSITION. SIDE RAILS UP X2 AND CALL LIGHT PLACED WITHIN EASY REACH. INSTRUCTED TO CALL IF NEED ASSISTANCE. WILL CONTINUE TO MONITOR.
[2019-08-06 08:00] VITALS: BP 175/87
[2019-08-06] MEDS: ZINC SULF 220 MG CAP PO SCH (09:00)
[2019-08-06] MEDS ORDERED: CLOPIDOGREL 75 MG TAB GT SCH (09:00)
[2019-08-06] MEDS: ASCORBIC ACID 500 MG TAB PO SCH (09:00)
[2019-08-06] MEDS: FAMOTIDINE 20 MG TAB PO SCH (09:00)
[2019-08-06] MEDS: AZITHROMYCIN 250 MG TAB PO SCH (09:00)
[2019-08-06] MEDS: METOPROLOL 25 MG TAB GT SCH ×3 (09:00→21:41)
[2019-08-06] MEDS: MEGESTROL 400 MG/10 ML UDC PO SCH (09:00)
[2019-08-06] MEDS: DOXAZOSIN 2 MG TAB PO SCH (09:00)
[2019-08-06] MEDS: DOCUSATE SODIUM 100 MG GELCAP PO SCH ×3 (09:00→22:00)
[2019-08-06] MEDS: LOSARTAN 50 MG TAB PO SCH (09:00)
[2019-08-06] MEDS: VITAMIN D 400 IU TAB PO SCH (09:00)
--- NOTE | 2019-08-06 09:05 | NUR ---
PATIENT HAS BEEN SCREENED AND CATEGORIZED HIGH NUTRITION RISK. PATIENT WILL BE SEEN WITHIN 1-2 DAYS OF ADMISSION. 08/06/19-08/07/[address]
--- NOTE | 2019-08-06 09:12 | NUR ---
LAND LAW EXAMINER NOTE: Basic Screen: Yes High Risk DC Screen [place]: GAMA YORK Home Relationship: DAUGHTER Pre-Admission Living Arrangements: SNF Other: [facility] Prior ADL Total/Dependent Current Home Health Name/Tel: N/A Current DME/02 Name/Tel: HOSPITAL BED Current Hospice Name/Tel: N/A Current Dialysis Name/Tel: N/A Healthcare Decision Maker: Next of Kin Other: GAMA YORK Advance Directive No Physician Orders for Life Sustaining Treatment Form No Patient/Family Have Educational Needs No Discipline: Case Mgt/Social Svcs Tentative Discharge Plan/Destination: SNF/ECF Other: [facility] Will require assistance post discharge: No Referred to Flexboard Operator: No Tentative Discharge Plan Summary: PATIENT IS AN 83-YEAR-OLD FEMALE ADMITTED FOR UTI. PATIENT HAS PMHX OF CVA, HEMIPLEGIA, DYSPHAGIA, APHASIA, HTN, MDD, AND HLD. [facility] SW CONTACTED CATRACHO FROM [facility] [phone]. PER CATRACHO, PATIENT IS LONG TERM AND ON A BED HOLD. PATIENT IS BED BOUND AND REQUIRES TOTAL ASSISTANCE WITH ADLS AND IS NOT ALERT/ORIENTED AT BASELINE. PATIENT'S HEALTHCARE DECISION MAKER IS DAUGHTER GAMA YORK [phone]. TENTATIVE DISCHARGE PLAN IS FOR PATIENT TO RETURN [facility]. NO FURTHER NEEDS IDENTIFIED. Signature: MEDHAT BURTON Date: August 06, 2019 Time: 09:11
--- NOTE | 2019-08-06 09:45 | NUR ---
SCHEDULED MEDICATIONS GIVEN. PATIENT TOLERATED WELL. WILL CONTINUE TO MONITOR.
[2019-08-06] MEDS: ENOXAPARIN 40 MG/0.4 ML SYR SUBQ SCH (10:13)
--- NOTE | 2019-08-06 10:57 | NUR ---
DC PLANNIN YRS OLD MALE PATIENT WAS ADMITTED FROM [facility] WITH A DX OF UTI, R/O COVID. PT HAS A HX OF CVA WITH HEMIPLEGIA APHASIC AND DYSPHAGIA, G-TUBE ,HYPERTENSION AND FAILURE TO THRIVE. CXR SHOWED NO EVIDENCE OF ACUTE CARDIOPULMONARY PATHOLOGY. UA HAS +2 BACTERIA. COVID TEST ,BLOOD AND URINE CULTURE PENDING. STARTED IVF, IV ABX WITH ROCEPHIN AND VIT C, VIT D, AND ZINC SUPPLEMENTS ECHO PENDING . DC PLAN TO GO BACK TO [facility] WHEN STABLE CM TO FOLLOW. Addendum: 08/08/19 at 1616 by Jammie Bennett CM COVID STILL PENDING. ON ROCEPHIN AND AZITHROMYCIN. Addendum: 08/09/19 at 1339 by Chanel Leon CM DC PLANNINND COVID TEST PENDING, CONTINUE IV ABC WITH ROCEPHIN AND IVF , VITALS STABLE. TX PLAN TO GO BACK TO [facility] [place] WHEN STABLE CM TO FOLLOW. Addendum: 08/10/19 at 1354 by Lucía Horan CM SPOKE TO PATIENTS DAVID MARTINEZ [phone] ABOUT TRANSFER BACK TO [facility] AND DISCUSSED PATIENTS RIGHTS OF MEDICARE. WAITING ON A ROOM FOR PATIENT. Addendum: 08/10/19 at 1440 by Lucía Horan CM SPOKE TO [place] PATIENT WILL BE RETURNING BACK TO [facility] TO [address]. ACCEPTING DOCTOR IS FELICITAS MARTEL. [facility] REQUEST US TO SEND PATIENT AROUND 5:00 PM BECAUSE ANOTHER PATIENT WILL BE ARRIVING TO THE SAME ROOM AROUND 3:00 PM. SPOKE TO LUÍS [place]KE[place] TO LET HER KNOW PATIENT HAS BEEN ACCEPTED, WILL FOLLOW UP WITH HER ONCE TRANSPORTATION IS SET UP. Addendum: 08/10/19 at 1532 by Chanel Leon CM DC PLANNING: CALLED [facility] [phone] SPOKE WITH THE METAL WEIGHER STATED WE HAVE TO SUBMIT A REQUEST FORM FROM [employer] . AUTHORIZATION REQUEST FORM SENT. CM TO FOLLOW Addendum: 08/10/19 at 1553 by Lucía Horan CM PATIENTS TRANSPORTATION IS ARRANGED FOR 630 PM WITH [facility]
--- NOTE | 2019-08-06 12:48 | NUR ---
PATIENT ASLEEP IN BED. RISE AND FALL OF CHEST NOTED. NO DISTRESS NOTED. WILL CONTINUE TO MONITOR.
--- NOTE | 2019-08-06 13:00 | NUR ---
08/06/19 RD INITIAL ASSESSMENT COMPLETED PLEASE REFER TO NUTRITION ASSESSMENT UNDER CARE ACTIVITY FOR ESTIMATED NUTRITIONAL NEEDS. 1. PENDING SWALLOW EVALUATION RECOMMENDATIONS 2. PATIENT PREVIOUS ON REGULAR DIET WITH THIN LIQUIDS AT [facility] 3. RECOMMEND ENSURE TID 4. PROVIDE ASSISTANCE WITH MEALS AND ENCOURAGE PO INTAKE 5. CONTINUE MEGACE PER PHYSICIAN FOR APPETITE 6. RD TO FOLLOW-UP 2-3 DAYS, HIGH RISK VIKRAM JOYNER, NANCY
[2019-08-06 13:46] VITALS: BP 150/80
--- NOTE | 2019-08-06 15:09 | NUR ---
ST CLARIFICATION NOTE Pt DEMONSTRATED FUNCTIONAL SWALLOW FOR Pt. Pt WAS ABLE TO TOLERATE PUREE, MSC, AND THIN LIQUIDS BY TSP, CUP, AND STRAW, SINGLE SIPS, W/O DIFFICULTY OR OVERT S/S OF ASPIRATION OR PENETRATION NOTED. AP TRANSFER AND SWALLOW RESPONSE WAS TIMELY W/ FULL LARYNGEAL ELEVATION AND EXCURSION. Pt WAS ABLE TO MASTICATE WITH OWN FULL DENTITION. Pt WAS ABLE TO HOLD CUP TO DRINK W/ SBA. Pt WAS UNABLE TO LIFT SPOON TO FEED SELF. REC MSC FOOD AND THIN LIQUIDS BY SINGLE SIP FROM CUP OR STRAW. ASPIRATION PRECAUTIONS, ORAL CARE, AND FEEDER NEEDED. D/C SKILLED ST FOR SWALLOW. Pt IS AT [facility].
[2019-08-06 16:30] VITALS: BP 110/66
--- NOTE | 2019-08-06 18:24 | NUR ---
PATIENT ASLEEP IN BED. RISE AND FALL OF CHEST NOTED. NO DISTRESS NOTED. WILL CONTINUE TO MONITOR.
--- NOTE | 2019-08-06 19:14 | NUR ---
PATIENT ENDORSED TO MANAGER GENERATION NURSE FOR CONTINUITY OF CARE.
--- NOTE | 2019-08-06 19:15 | NUR ---
RECEIVED PT IN STABLE CONDITION FROM AM NURSE, WAYNE. TELE PT. WITH NO C/O ANY DISCOMFORT NOR PAIN NOTED. RESPIRATIONS EVEN AND UNLABORED.WITH IV ON THE R WRIST D5NS AT 50ML/HR, PATENT AND INTACT. ON R.A. NO DISTRESS NOTED. FALL RISK/ SAFETY MEASURES IN PLACE. BED IN LOW POSITION. SIDE RAILS UP X2 AND CALL LIGHT PLACED WITHIN EASY REACH. INSTRUCTED TO CALL IF NEED ASSISTANCE. WILL CONTINUE TO MONITOR.
--- NOTE | 2019-08-06 20:09 | NUR ---
PT COMFORTABLY SLEEP ON RA IN NO APPARENT DISTRESS AT THIS TIME
[2019-08-06 21:00] VITALS: BP 189/79
--- NOTE | 2019-08-06 22:01 | NUR ---
INFORMED DR BAJWA BP 59/19 [facility] TOOK BP 2X HR 69, HELD LOPRESSOR, AND COLACE Addendum: 08/06/19 at 2318 by Milli Chiu RN GOT BP BEFORE GIVING THE LOPRESSOR
--- NOTE | 2019-08-06 22:02 | NUR ---
PLACED PT ON RE[place]SE [place] FOR NOW. AWAITING FOR DR. BAJWA TO SEE PT 1ST
--- NOTE | 2019-08-06 22:30 | NUR ---
BP MACHINE NOT WORKING, CHANGED TO A NEW ONE; 189/79 [facility]; HR 62 WILL GIVE THE LOPRESSOR
--- NOTE | 2019-08-06 22:31 | NUR ---
WILL ALSO GIVE THE DOCUSATE NA.
--- NOTE | 2019-08-06 23:00 | NUR ---
TURNED BY ENGINEERING AIDE TO ONE SIDE, CHECKED, DRY . PLACED IN A COMFORTABLE POSITION
[2019-08-07] VITALS: BP 180/93
--- NOTE | 2019-08-07 | NUR ---
BP= 180/ 93 HR 69 DESPITE GIVING LOPRESSOR EARLIER, DR. BRICEÑO AWARE WILL ORDER IV HYDRALAZINE PRN
[2019-08-07] MEDS ORDERED: hydrALAZINE 20 MG/ML VIAL IVP PRN (00:20)
--- NOTE | 2019-08-07 00:51 | NUR ---
ADMINISTERED HYDRALAZINE PRN ORDERED BY DR. BAJWA BP 180/ 93; HR 93. WILL RETAKE BP AND HR LATER
--- NOTE | 2019-08-07 01:51 | NUR ---
REASSESS AFTER GIVING HYDRALAZINE 151/79 [facility]; HR 65
--- NOTE | 2019-08-07 02:52 | NUR ---
FEED INSPECTION SUPERVISOR CHECKED PT AND TURNED TO SIDE, NO SIGNS OF RESPIRATORY DISTRESS. PT NOW AWAKE AND PT WANTED TO DRINK WATER. TOLD HIM NPO FOR NOW, GAVE HIM ICE CHIPS
[2019-08-07 04:00] VITALS: BP 151/79
[2019-08-07] MEDS: LEVOTHYROXINE 0.025 MG TAB PO SCH (06:07)
--- NOTE | 2019-08-07 06:07 | NUR ---
VERIFIED W/ NESTOR STALEY LEVOTHYROXINE DOSE MANUALLY INPUTTED , DEFECTIVE COW 3
--- NOTE | 2019-08-07 07:30 | NUR ---
RECEIVED REPORT FROM SCRAP PREPARATION SUPERVISOR NURSE, ALANA, FOR CONTINUITY OF CARE. PT IS AA&0X2. R/O COVID &UTI; CC: DYSPNEA. PT. IS RA, WITH O2 STAT OF 96%. NO SIGNS OF DISTRESS NOTED. IV IS ON THE L WRIST 20G WITH D5NS INFUSING AT 50ML/HR AND R WRIST 22G SL, BOTH PATENT AND INTACT. TELE MONITOR ATTACHED. DROPLET ISOLATION IN PLACE. SAFETY MEASURES IN PLACE; BED IN LOW POSITION, CALL LIGHT WITHIN REACH. POC IS DISCUSSED. WILL CONTINUE TO MONITOR.
[2019-08-07 07:48] LABS: HEMATOCRIT 30.6 % (36-52); HEMOGLOBIN 10.2 g/dL (12.0-18.0); MEAN CORPUSCULAR HEMOGLOBIN 31 pg (27-31); MEAN CORPUSCULAR HGB CONC 33 g/dL (33-37); MEAN CORPUSCULAR VOLUME 92.2 fL (80-94); RED BLOOD CELL COUNT(AUTO) 3.32 MIL/uL (4.20-6.10); RED CELL DISTRIBUTION WIDTH 13.8 % (11.6-13.7); WHITE BLOOD COUNT (AUTO) 11.6 K/uL (4.8-10.8)
[2019-08-07 08:00] VITALS: BP 162/84
[2019-08-07 08:20] LABS: ALBUMIN 2.5 g/dL (3.4-5.0); ANION GAP 18.2 (8-16); ASPARTATE AMINOTRANSFERASE 18 U/L (15-37); CARBON DIOXIDE 19.8 mmol/L (21-32); CHLORIDE 115 mmol/L (98-107); CREATININE 1.6 mg/dL (0.6-1.3); GLUCOSE 98 mg/dL (74-106); LACTATE DEHYDROGENASE 186 U/L (85-227); MAGNESIUM 1.8 mg/dL (1.8-2.4); PHOSPHORUS 3.1 mg/dL (2.5-4.9); SODIUM SERUM 149 mmol/L (136-145); TOTAL BILIRUBIN 0.3 mg/dL (0.0-1.0); UREA NITROGEN, BLOOD 41 mg/dL (7-18)
--- NOTE | 2019-08-07 08:20 | NUR ---
MORNING MEDICATIONS GIVEN. NO SIGNS OF DISTRESS NOTED. PT. IS CLEANED AND TURNED. V/S TAKEN BP 162/84, HR 80, 02 STAT 100%, TEMP 99.0F, RR 18. WILL CONTINUE TO MONITOR.
[2019-08-07] MEDS: VITAMIN D 400 IU TAB PO SCH (08:21)
[2019-08-07] MEDS: LOSARTAN 50 MG TAB PO SCH (08:21)
[2019-08-07] MEDS: DOCUSATE SODIUM 100 MG GELCAP PO SCH ×2 (08:22→21:58)
[2019-08-07] MEDS: ASCORBIC ACID 500 MG TAB PO SCH (08:22)
[2019-08-07] MEDS: FAMOTIDINE 20 MG TAB PO SCH (08:22)
[2019-08-07] MEDS: ZINC SULF 220 MG CAP PO SCH (08:22)
[2019-08-07] MEDS: DOXAZOSIN 2 MG TAB PO SCH (08:23)
[2019-08-07] MEDS: AZITHROMYCIN 250 MG TAB PO SCH (08:23)
[2019-08-07] MEDS: METOPROLOL 25 MG TAB GT SCH ×2 (08:24→21:58)
[2019-08-07] MEDS: MEGESTROL 400 MG/10 ML UDC PO SCH (08:25)
[2019-08-07] MEDS: MAGNESIUM HYDROXIDE 2400 MG/30 ML UDC GT PRN (08:25)
[2019-08-07] MEDS: ENOXAPARIN 40 MG/0.4 ML SYR SUBQ SCH (08:52)
--- NOTE | 2019-08-07 10:30 | NUR ---
REASSESSED V/S WITH BP 130/78, HR 61. NO SIGNS OF DISTRESS NOTED. WILL CONTINUE TO MONITOR.
[2019-08-07 11:10] LABS: PLATELET COUNT (AUTO) 186 K/uL (140-450)
[2019-08-07 11:11] LABS: EOSINOPHILS % (MANUAL) 2 % (0-4); LYMPHOCYTES % (MANUAL) 20 % (20-46); MONOCYTES % (MANUAL) 6 % (5-12)
--- NOTE | 2019-08-07 11:50 | NUR ---
PT. IS ASLEEP AND IN BED. V/S TAKEN BP 134/77, HR 59, O2 STAT 92%, TEMP 99.1F, RR 18. NO SIGNS OF DISTRESS NOTED. WILL CONTINUE TO MONITOR.
[2019-08-07 12:00] VITALS: BP 134/77
--- NOTE | 2019-08-07 14:20 | NUR ---
PT. IS ASLEEP AND IN BED. NO SIGNS OF DISTRESS. PT. IS TURNED AND CLEANED. WILL CONTINUE TO MONITOR.
[2019-08-07 16:00] VITALS: BP 136/86
[2019-08-07] MEDS: DEXT 5% / NACL 0.45% 1,000 ML IV SCH (16:40)
--- NOTE | 2019-08-07 16:55 | NUR ---
IVF CHANGED TO D51/2NS AT 50ML/HR. NO SIGNS OF DISTRESS NOTED. WILL CONTINUE TO MONITOR.
--- NOTE | 2019-08-07 18:50 | NUR ---
SPOKE TO DR. HANNA ABOUT PT'S NPO STATUS. AGREES TO CHANGE DIET TO [facility] SOFT, THIN LIQUIDS PER RECOMMENDATION OF ST. WILL CONTINUE TO MONITOR.
--- NOTE | 2019-08-07 19:26 | NUR ---
ENDORSED TO CERTIFIED MEDICAL BILLER NURSELATESHA, FOR CONTINUITY OF CARE.
[2019-08-07 20:00] VITALS: BP 140/82
--- NOTE | 2019-08-07 21:58 | NUR ---
SCHEDULED MEDS ADMINISTERED WITH APPLE SAUCE. PT TOLERATED WELL
[2019-08-08 00:03] VITALS: BP 150/72
--- NOTE | 2019-08-08 00:05 | NUR ---
PT VOIDED AND HAD A SMALL BM. PATIENT GIVEN PERICARE. PT TURNED AND REPOSITIONED FOR COMFORT
[2019-08-08 04:25] VITALS: BP 149/77
--- NOTE | 2019-08-08 04:30 | NUR ---
PT VOIDED AND HAD A SMALL BM. PATIENT GIVEN PERICARE. PT TURNED AND REPOSITIONED FOR COMFORT
[2019-08-08] MEDS: LEVOTHYROXINE 0.025 MG TAB PO SCH (06:20)
[2019-08-08 07:19] LABS: ANION GAP 12.8 (8-16); CARBON DIOXIDE 21.1 mmol/L (21-32); CHLORIDE 112 mmol/L (98-107); CREATININE 1.4 mg/dL (0.6-1.3); GLUCOSE 111 mg/dL (74-106); POTASSIUM 3.9 mmol/L (3.5-5.1); SODIUM SERUM 142 mmol/L (136-145); UREA NITROGEN, BLOOD 39 mg/dL (7-18)
--- NOTE | 2019-08-08 07:20 | NUR ---
RECEIVED REPORT FROM ELECTROLESS PLATER RN, LATESHA, FOR CONTINUITY OF CARE. PT IS AA&0X2. R/O COVID &UTI; CC: DYSPNEA. PT. IS ON RA, WITH O2 STAT OF 96%. NO SIGNS OF DISTRESS NOTED. IV IS ON THE L WRIST 20G WITH D5 1/2NS INFUSING AT 50ML/HR AND R WRIST 22G SL, BOTH PATENT AND INTACT. TELE MONITOR ATTACHED. DROPLET ISOLATION IN PLACE. SAFETY MEASURES IN PLACE; BED IN LOW POSITION, CALL LIGHT WITHIN REACH. POC IS DISCUSSED. WILL CONTINUE TO MONITOR.
[2019-08-08 07:25] LABS: PHOSPHORUS 3.3 mg/dL (2.5-4.9)
[2019-08-08 07:27] LABS: BASOPHILS % (AUTO) 0.3 % (0.0-2.0); EOSINOPHILS # (AUTO) 0.2 K/uL (0-0.4); EOSINOPHILS % (AUTO) 1.9 % (0.0-4.0); HEMATOCRIT 27.8 % (36-52); HEMOGLOBIN 9.6 g/dL (12.0-18.0); LYMPHOCYTES # (AUTO) 1.5 K/uL (2.0-11.5); MEAN CORPUSCULAR HEMOGLOBIN 31 pg (27-31); MEAN CORPUSCULAR HGB CONC 34 g/dL (33-37); MEAN CORPUSCULAR VOLUME 91.4 fL (80-94); MONOCYTES # (AUTO) 0.7 K/uL (0.8-1.0); MONOCYTES % (AUTO) 6.9 % (1.7-9.3); NEUTROPHILS # (AUTO) 7.3 K/uL (1.8-7.7); NEUTROPHILS % (AUTO) 75.9 % (42.2-75.2); PLATELET COUNT (AUTO) 184 K/uL (140-450); RED BLOOD CELL COUNT(AUTO) 3.04 MIL/uL (4.20-6.10); RED CELL DISTRIBUTION WIDTH 13.6 % (11.6-13.7); WHITE BLOOD COUNT (AUTO) 9.7 K/uL (4.8-10.8)
--- NOTE | 2019-08-08 07:50 | NUR ---
PT. IS CLEANED, CHANGED AND TURNED. BREAKFAST BY THE BEDSIDE. V/S TAKEN WITH 145/89, HR 64, O2 STAT 100%, TEMP 98.4F, PT. VERBALIZES NO PAIN. NO SIGNS OF DISTRESS NOTED. WILL CONTINUE TO MONITOR.
[2019-08-08 08:00] VITALS: BP 148/89
[2019-08-08] MEDS: DOXAZOSIN 2 MG TAB PO SCH (08:59)
[2019-08-08] MEDS: VITAMIN D 400 IU TAB PO SCH (09:00)
[2019-08-08] MEDS: DOCUSATE SODIUM 100 MG GELCAP PO SCH ×2 (09:00→21:05)
[2019-08-08] MEDS: ASCORBIC ACID 500 MG TAB PO SCH (09:00)
[2019-08-08] MEDS: FAMOTIDINE 20 MG TAB PO SCH (09:00)
[2019-08-08] MEDS: ZINC SULF 220 MG CAP PO SCH (09:00)
--- NOTE | 2019-08-08 09:00 | NUR ---
MORNING MEDICATIONS GIVEN. BP 149/78, HR 72. NO SIGNS OF DISTRESS NOTED. WILL CONTINUE TO MONITOR.
[2019-08-08] MEDS: AZITHROMYCIN 250 MG TAB PO SCH (09:01)
[2019-08-08] MEDS: LOSARTAN 50 MG TAB PO SCH (09:01)
[2019-08-08] MEDS: METOPROLOL 25 MG TAB GT SCH ×2 (09:01→21:00)
[2019-08-08] MEDS: MAGNESIUM HYDROXIDE 2400 MG/30 ML UDC GT PRN (09:02)
[2019-08-08] MEDS: ENOXAPARIN 40 MG/0.4 ML SYR SUBQ SCH (09:30)
--- NOTE | 2019-08-08 11:50 | NUR ---
PT. IS CLEANED, TURNED, LUNCH IS BY THE BEDSIDE. NO SIGNS OF DISTRESS NOTED. WILL CONTINUE TO MONITOR.
[2019-08-08] MEDS: DEXT 5% / NACL 0.45% 1,000 ML IV SCH (11:54)
--- NOTE | 2019-08-08 11:55 | NUR ---
IVF CHANGED. NO SIGNS OF DISTRESS NOTED. V/S TAKEN AND VALUES WNL. WILL CONTINUE TO MONITOR.
[2019-08-08 12:00] VITALS: BP 112/56
--- NOTE | 2019-08-08 16:45 | NUR ---
PT. IS CHANGED, TURNED, AND CLEANED. NO SIGNS OF DISTRESS NOTED. WILL CONTINUE TO MONITOR.
[2019-08-08 18:00] VITALS: BP 119/66
--- NOTE | 2019-08-08 19:25 | NUR ---
ENDORSED PT. TO PSYCHIATRIC REGISTERED NURSE NURSE, MARLIN, FOR CONTINUITY OF CARE.
--- NOTE | 2019-08-08 19:25 | NUR ---
RECEIVED PT AAOX2 , - W/ HX OF CVA . IV SITES INTACT AND PATENT, NID - O2 SAT WNL . ON TELE MONITOR. INCONTINENT , HEMIPLEGIC - FALL RISK - BED ALARM ON . SAFETY MEASURES IN PLACE . CALL LIGHT WITHIN REACH . PLAN OF CARE DISCUSSED BUT POOR UNDERSTANDING DUE TO MENTAL STATUS . WILL CONT. TO MONITOR.
[2019-08-08 20:00] VITALS: BP 110/59
--- NOTE | 2019-08-08 22:00 | NUR ---
MADE ROUNDS , NO S/S OF ACUTE DIASTRESS NOTED AT THIS TIME . O2 SAT WNL . METOPROLOL TAB. NOT GIVEN DUE TO LOW DBP- 59[facility] - WILL INFORM RESIDENT ON DUTY. WILL CONT. TO MONITOR.
[2019-08-09] VITALS: BP 100/60
--- NOTE | 2019-08-09 | NUR ---
MADE ROUNDS , NO S/S OF ACUTE DISTRESS NIOTED AT THIS . RA , ON TELE MONITOR. WILL CONT. TO MONITOR.
--- NOTE | 2019-08-09 02:00 | NUR ---
SLEEPING - CHEST RISE AND FALL EQUALLY - WILL CONT. TO MONITOR . O2 SAT WNL.
[2019-08-09 04:00] VITALS: BP 110/60
--- NOTE | 2019-08-09 04:00 | NUR ---
MADE ROUNDS , NO S/S OF ACUTE DISTRESS NOTED AT THIS TIME . O2 SAT WNL.
--- NOTE | 2019-08-09 06:00 | NUR ---
MADE ROUNDS . NO S/S OF ACUTE DISTRESS NOTED AT THIS TIME.
[2019-08-09] MEDS: LEVOTHYROXINE 0.025 MG TAB PO SCH (06:44)
[2019-08-09] MEDS: DEXT 5% / NACL 0.45% 1,000 ML IV SCH (07:04)
--- NOTE | 2019-08-09 07:20 | NUR ---
ENDORSED TO MIRTHA CRAFT - PT- STABLE - FOR NOVEL GALVEZ CITLALI - ENDORSED TO ORIANA.
--- NOTE | 2019-08-09 07:22 | NUR ---
RECEIVED REPORT FROM VENEER REPAIRER MACHINE NURSE FOR CONTINUITY OF CARE. PT IS AWAKE AND RESTING ON BED AT THIS TIME. PT IS AAOX1, SPEECH SLURRED AND DELAYED. RESPIRATION EVEN AND UNLABORED ON RA, SPO2 MONITOR BY BEDSIDE. NO SIGNS OF DISTRESS NOTED. IV ON R HAND 22G, CLEAN AND INTACT, INFUSING D5 NS 0.45 AT 50 ML/HR. L WRIST 20G, CLEAN AND INTACT, SL. OLD G-TUBE STOMA ON ABD NOTED, CLOSED WOUND. OTHERWISE, SKIN CLEAN AND DRY. PT IS INCONTINENT AND BEDREST. TELE MONITOR ATTACHED. ENHANCED PRECAUTION IN PLACE. SAFETY MEASURES IN PLACE. BED IN LOW POSITION AND CALL LIGHT WITHIN REACH.
[2019-08-09 07:38] LABS: BASOPHILS % (AUTO) 0.3 % (0.0-2.0); EOSINOPHILS # (AUTO) 0.1 K/uL (0-0.4); EOSINOPHILS % (AUTO) 1.7 % (0.0-4.0); HEMATOCRIT 28.9 % (36-52); HEMOGLOBIN 9.8 g/dL (12.0-18.0); LYMPHOCYTES # (AUTO) 1.7 K/uL (2.0-11.5); LYMPHOCYTES % (AUTO) 20.1 % (20.5-51.1); MEAN CORPUSCULAR HEMOGLOBIN 31 pg (27-31); MEAN CORPUSCULAR HGB CONC 34 g/dL (33-37); MEAN CORPUSCULAR VOLUME 92.1 fL (80-94); MONOCYTES # (AUTO) 0.7 K/uL (0.8-1.0); MONOCYTES % (AUTO) 8.1 % (1.7-9.3); NEUTROPHILS # (AUTO) 5.8 K/uL (1.8-7.7); NEUTROPHILS % (AUTO) 69.8 % (42.2-75.2); PLATELET COUNT (AUTO) 176 K/uL (140-450); RED BLOOD CELL COUNT(AUTO) 3.14 MIL/uL (4.20-6.10); RED CELL DISTRIBUTION WIDTH 13.9 % (11.6-13.7); WHITE BLOOD COUNT (AUTO) 8.3 K/uL (4.8-10.8)
[2019-08-09 08:00] VITALS: BP 151/78
[2019-08-09 08:25] LABS: MAGNESIUM 1.9 mg/dL (1.8-2.4); PHOSPHORUS 3.1 mg/dL (2.5-4.9)
[2019-08-09 09:02] LABS: ANION GAP 17.8 (8-16); CARBON DIOXIDE 18.7 mmol/L (21-32); CHLORIDE 109 mmol/L (98-107); CREATININE 1.5 mg/dL (0.6-1.3); GLUCOSE 111 mg/dL (74-106); POTASSIUM 4.5 mmol/L (3.5-5.1); SODIUM SERUM 141 mmol/L (136-145); UREA NITROGEN, BLOOD 36 mg/dL (7-18)
[2019-08-09] MEDS: FAMOTIDINE 20 MG TAB PO SCH (09:34)
[2019-08-09] MEDS: VITAMIN D 400 IU TAB PO SCH (09:34)
[2019-08-09] MEDS: DOXAZOSIN 2 MG TAB PO SCH (09:34)
[2019-08-09] MEDS: DOCUSATE SODIUM 100 MG GELCAP PO SCH ×2 (09:35→20:21)
[2019-08-09] MEDS: AZITHROMYCIN 250 MG TAB PO SCH (09:35)
[2019-08-09] MEDS: ZINC SULF 220 MG CAP PO SCH (09:35)
[2019-08-09] MEDS: ENOXAPARIN 40 MG/0.4 ML SYR SUBQ SCH (09:36)
[2019-08-09] MEDS: METOPROLOL 25 MG TAB GT SCH ×2 (09:42→20:21)
[2019-08-09] MEDS: ASCORBIC ACID 500 MG TAB PO SCH (09:43)
[2019-08-09] MEDS: LOSARTAN 50 MG TAB PO SCH (09:43)
--- NOTE | 2019-08-09 09:57 | NUR ---
CHECKED BP PRIOR TO MED ADMINISTER, BP 151/78 PULSE 67, SPO2 100% ON RA. ADMINISTERED MEDS PER MD ORDER WITH APPLE SAUCE, PT TOLERATED WELL. MEDS EDUCATION PROVIDED AND REINFORCEMENT NEEDED DUE TO MENTAL STATUS. PT AWAKE AND RESTING ON BED AT THIS TIME. FLACC 0. NO SIGNS OF ACUTE DISTRESS NOTED. TELE MONITOR ATTACHED. SAFETY MEASURES IN PLACE. BED IN LOW POSITION AND CALL LIGHT WITHIN REACH. BED ALARM ACTIVATED.
--- NOTE | 2019-08-09 09:59 | NUR ---
COVID SPECIMEN COLLECTED AND WILL DELIVER TO LAB.
--- NOTE | 2019-08-09 11:50 | NUR ---
MOLD PREPARER PROVIDED HYGIENE CARE AND REPOSITIONING PT. PT TOLERATED WELL. NO SIGNS OF DISTRESS NOTED. TELE MONITOR ATTACHED. SAFETY MEASURES IN PLACE. BED IN LOW POSITION AND CALL LIGHT WITHIN REACH. BED ALARM ACTIVATED.
[2019-08-09 12:00] VITALS: BP 130/68
--- NOTE | 2019-08-09 13:44 | NUR ---
PT IS RESTING ON BED AT THIS TIME, EYES OPEN TO VOICE. NO SIGNS OF DISTRESS NOTED. TELE MONITOR ATTACHED. SAFETY MEASURES IN PLACE. BED IN LOW POSITION AND CALL LIGHT WITHIN REACH. BED ALARM ACTIVATED.
--- NOTE | 2019-08-09 14:17 | NUR ---
08/09/19 RD FOLLOW UP COMPLETED PLEASE REFER TO NUTRITION ASSESSMENT UNDER CARE ACTIVITY FOR ESTIMATED NUTRITIONAL NEEDS. 1. CONTINUE ON MECHANICAL SOFT DIET 2. RECOMMEND ENSURE BID 3. CONTINUE TO PROVIDE ASSISTANCE W/MEALS AND ENCOURAGE PO INTAKE >50% 4. RD TO FOLLOW-UP 3-5 DAYS, MODERATE RISK VIKRAM JOYNER, RD
--- NOTE | 2019-08-09 15:50 | NUR ---
PT IS RESTING ON BED. RESPIRATION EVEN AND UNLABORED ON RA. FLACC 0. NO SIGNS OF DISTRESS NOTED. TELE MONITOR ATTACHED. SAFETY MEASURES IN PLACE. BED IN LOW POSITION AND CALL LIGHT WITHIN REACH. BED ALARM ACTIVATED.
[2019-08-09 16:00] VITALS: BP 122/65
--- NOTE | 2019-08-09 17:33 | NUR ---
PT IS RESTING ON BED AT THIS TIME. AROUSABLE TO VOICE. FLACC 0. RESPIRATION EVEN AND UNLABORED ON RA. SPO2 AT 95%. NO SIGNS OF DISTRESS NOTED. TELE MONITOR ATTACHED. SAFETY MEASURES IN PLACE.
--- NOTE | 2019-08-09 19:08 | NUR ---
ENDORSED PT TO SUBSTATION OPERATOR TRANSFORMING NURSE FOR CONTINUITY OF CARE. PT IS IN STABLE CONDITION. TELE MONITOR ATTACHED. SAFETY MEASURES IN PLACE.
--- NOTE | 2019-08-09 19:10 | NUR ---
RECEIVED PATIENT IN STABLE CONDITION FROM AM SHIFT NURSE FOR CONTINUITY OF CARE. RESPIRATIONS EVEN, UNLABORED. SKIN WARM, DRY. IV SITE NOTED TO RIGHT HAND 20G PATENT/INTACT, INFUSING FLUIDS WELL. SALINE LOCK TO LEFT WRIST 20G PATENT/INTACT. FLACC 0. NO S/S ACUTE DISTRESS. SAFETY PRECAUTIONS IN PLACE. CALL LIGHT WITHIN REACH. WILL CONTINUE TO MONITOR.
[2019-08-09 20:00] VITALS: BP 127/60
--- NOTE | 2019-08-09 21:00 | NUR ---
PATIENT WATCHING TV AT THIS TIME. NO C/O PAIN. NO S/S ACUTE DISTRESS. CALL LIGHT WITHIN REACH. WILL CONTINUE TO MONITOR.
--- NOTE | 2019-08-09 22:01 | NUR ---
PROVIDED INCONTINENT CARE AT THIS TIME WITH DIRECTOR OF INFECTION PREVENTION AT BEDSIDE. BOWEL MOVEMENT NOTED. PATIENT CLEAN/DRY. NO C/O PAIN. NO S/S ACUTE DISTRESS. CALL LIGHT WITHIN REACH. WILL CONTINUE TO MONITOR.
--- NOTE | 2019-08-09 23:11 | NUR ---
MADE ROUNDS. PATIENT IS ASLEEP AND IN STABLE CONDITION. CALL LIGHT WITHIN REACH. WILL CONTINUE TO MONITOR.
[2019-08-10] VITALS: BP 99/63
--- NOTE | 2019-08-10 01:05 | NUR ---
PATIENT AWAKE AND WATCHING TV. CONTINUES IN STABLE CONDITION. NO C/O PAIN. NO S/S ACUTE DISTRESS. CALL LIGHT WITHIN REACH. WILL CONTINUE TO MONITOR.
--- NOTE | 2019-08-10 03:00 | NUR ---
PATIENT SLEEPING. CONTINUES IN STABLE CONDITION. NO S/S ACUTE DISTRESS. CALL LIGHT WITHIN REACH. WILL CONTINUE TO MONITOR.
[2019-08-10] MEDS: DEXT 5% / NACL 0.45% 1,000 ML IV SCH (03:03)
[2019-08-10 04:00] VITALS: BP 146/86
--- NOTE | 2019-08-10 05:03 | NUR ---
PATIENT AWAKE. INCONTINENT CARE PROVIDED. SMALL BM NOTED. CALL LIGHT WITHIN REACH. WILL CONTINUE TO MONITOR.
[2019-08-10] MEDS: LEVOTHYROXINE 0.025 MG TAB PO SCH (05:37)
--- NOTE | 2019-08-10 06:08 | NUR ---
PATIENT ASLEEP. NO C/O PAIN. NO S/S ACUTE DISTRESS. SAFETY PRECAUTIONS IN PLACE. CALL LIGHT WITHIN REACH. WILL CONTINUE TO MONITOR.
[2019-08-10 06:57] LABS: BASOPHILS % (AUTO) 0.4 % (0.0-2.0); EOSINOPHILS # (AUTO) 0.2 K/uL (0-0.4); EOSINOPHILS % (AUTO) 1.9 % (0.0-4.0); HEMATOCRIT 28.9 % (36-52); HEMOGLOBIN 9.9 g/dL (12.0-18.0); LYMPHOCYTES % (AUTO) 22.6 % (20.5-51.1); MEAN CORPUSCULAR HEMOGLOBIN 32 pg (27-31); MEAN CORPUSCULAR HGB CONC 34 g/dL (33-37); MEAN CORPUSCULAR VOLUME 91.9 fL (80-94); MONOCYTES # (AUTO) 0.7 K/uL (0.8-1.0); MONOCYTES % (AUTO) 8.4 % (1.7-9.3); NEUTROPHILS # (AUTO) 5.8 K/uL (1.8-7.7); NEUTROPHILS % (AUTO) 66.7 % (42.2-75.2); PLATELET COUNT (AUTO) 195 K/uL (140-450); RED BLOOD CELL COUNT(AUTO) 3.15 MIL/uL (4.20-6.10); RED CELL DISTRIBUTION WIDTH 13.5 % (11.6-13.7); WHITE BLOOD COUNT (AUTO) 8.6 K/uL (4.8-10.8)
[2019-08-10 07:08] LABS: PHOSPHORUS 3.2 mg/dL (2.5-4.9)
--- NOTE | 2019-08-10 07:15 | NUR ---
RECEIVED PATIENT FROM NIGHT NURSE. PATIENT IS RESTING COMFORTABLY IN BED. PATIENT IS ON RA, NO NOTED DISTRESS AT THIS TIME. IVF 50ML/HR TO RH, LW SALINE LOCKED. WILL CONTINUE WIT PLAN OF CARE.
[2019-08-10 07:24] LABS: ANION GAP 12.3 (8-16); CARBON DIOXIDE 23.4 mmol/L (21-32); CHLORIDE 107 mmol/L (98-107); CREATININE 1.4 mg/dL (0.6-1.3); GLUCOSE 109 mg/dL (74-106); POTASSIUM 4.7 mmol/L (3.5-5.1); SODIUM SERUM 138 mmol/L (136-145); UREA NITROGEN, BLOOD 27 mg/dL (7-18)
[2019-08-10 08:00] VITALS: BP 143/78
[2019-08-10] MEDS: METOPROLOL 25 MG TAB GT SCH ×2 (09:00→09:40)
[2019-08-10 09:15] LABS: LACTATE DEHYDROGENASE 187 IU/L (121-224)
[2019-08-10] MEDS: MAGNESIUM HYDROXIDE 2400 MG/30 ML UDC GT PRN (09:37)
[2019-08-10] MEDS: DOXAZOSIN 2 MG TAB PO SCH (09:40)
[2019-08-10] MEDS: VITAMIN D 400 IU TAB PO SCH (09:40)
[2019-08-10] MEDS: DOCUSATE SODIUM 100 MG GELCAP PO SCH (09:41)
[2019-08-10] MEDS: LOSARTAN 50 MG TAB PO SCH (09:41)
[2019-08-10] MEDS: FAMOTIDINE 20 MG TAB PO SCH (09:41)
[2019-08-10] MEDS: ENOXAPARIN 40 MG/0.4 ML SYR SUBQ SCH (09:42)
[2019-08-10] MEDS: ZINC SULF 220 MG CAP PO SCH (09:42)
--- NOTE | 2019-08-10 09:50 | NUR ---
MORNING ROUTINE MEDICATIONS GIVEN. PATIENTS TOLERATED WELL. LOPRESSOR HELD D/T PARAMETERS: HR 58.
[2019-08-10] MEDS: ASCORBIC ACID 500 MG TAB PO SCH (09:56)
[2019-08-10 11:46] VITALS: BP 119/71
[2019-08-10 11:56] LABS: FERRITIN 887 ng/mL (30 - 400)
--- NOTE | 2019-08-10 12:27 | NUR ---
ATTEMPTED TO CALL DAUGHTER GAMA Riley [phone] TO NOTIFY OF PATIENT PENDING DISCHARGE BACK TO [facility] [place] [place]. MESSAGE LEFT VIA VOICE MAIL.
--- NOTE | 2019-08-10 14:36 | NUR ---
STEPHANIE IN DISCHARGE PLANNING INFORMED OF DISCHARGE TO [facility] [place] ROOM [address] UNDER CARE OF DR. POLK. [facility] WILL ACCEPT CLIENT AFTER 1700.
--- NOTE | 2019-08-10 15:50 | NUR ---
STEPHANIE INFORMED OF [facility] WILL BE PICKING UP PATIENT AT 1830.
[2019-08-10 16:00] VITALS: BP 143/78
--- NOTE | 2019-08-10 16:11 | NUR ---
PATIENT IS RESTING COMFORTABLY IN BED. CALL LIGHT WITHIN REACH
--- NOTE | 2019-08-10 18:11 | NUR ---
CALLED [facility] AND GAVE REPORT TO LUÍS DAVIS AND RN VERBALIZED UNDERSTANDING.
--- NOTE | 2019-08-10 19:05 | NUR ---
DISCHARGED PT TO [facility], DISCHARGED TEACHINGS AND INSTRUCTION GIVEN TO PT AND REINFROCEMENT IS NEEDED, IV LINES AND ARM BAND REMOVED AND PT IS STABLE AT THIS TIME.
[2019-08-13 06:26] LABS: LD1 FRACTION 24 % (17-32); LD2 FRACTION 33 % (25-40); LD3 FRACTION 20 % (17-27); LD4 FRACTION 9 % (5-13); LD5 FRACTION 14 % (4-20)
== END 2019-08-10 19:05 | DRG 682 ==
LOC: MED 00:03 → EEVIPCON 00:03 → MTU 02:52
PROVIDERS: ADMIT General Practice; ATTEND General Practice
DX: N17.0 Acute kidney failure with tubular necrosis (principal); I50.43 Acute on chronic combined systolic (congestive) and diastolic (congestive) heart failure; G93.41 Metabolic encephalopathy; E43 Unspecified severe protein-calorie malnutrition; N39.0 Urinary tract infection, site not specified; E87.0 Hyperosmolality and hypernatremia; I69.359 Hemiplegia and hemiparesis following cerebral infarction affecting unspecified side; E78.5 Hyperlipidemia, unspecified; Z66 Do not resuscitate; I11.0 Hypertensive heart disease with heart failure; E03.9 Hypothyroidism, unspecified; K59.09 Other constipation; B96.4 Proteus (mirabilis) (morganii) as the cause of diseases classified elsewhere; R74.0 Nonspecific elevation of levels of transaminase and lactic acid dehydrogenase [LDH]; F03.90 Unspecified dementia, unspecified severity, without behavioral disturbance, psychotic disturbance, mood disturbance, and anxiety; F32.9 Major depressive disorder, single episode, unspecified; Z68.25 Body mass index [BMI] 25.0-25.9, adult; Z79.899 Other long term (current) drug therapy; Z03.818 Encounter for observation for suspected exposure to other biological agents ruled out
CPT/HCPCS: 36415; 70450; 71045; 76705; 80048; 80053; 81001; 82550; 82728; 83036; 83605; 83615; 83625; 83690; 83735; 83880; 84100; 84443; 84484; 85025; 85379; 85384; 85610; 85651; 85730; 86140; 87040; 87081; 87086; 87186; 87420; 87804; 92610; 93005; 96365; 99285; J0360; J0696; J1650; J7042; J7060; Q0092

== ENCOUNTER 2019-10-22 18:03 | Emergency (ER) | payer OTHER, SELFPAY ==
[~2019-10-22] VITALS: Ht 175.3 cm; Wt 49.9 kg
[~2019-10-22 18:03] MED LIST changes: +BISA-213 RC; -DOCU-299 GT; -LACT10CA GT; -LEVO500T2 PO; +MEGE40SU23 PO; +MOM GT; -TRAZ-343 GT
--- NOTE | 2019-10-22 18:16 | NUR ---
dr roa at bedside evaluating pt.
[2019-10-22 18:18] VITALS: BP 53/22
--- NOTE | 2019-10-22 18:20 | NUR ---
BIBA FROM [facility] , C/C DYSPNEA. PER MEDICS PT WITH AGONAL BREATHING. 92% SPO2 NON REBREATHER, DIAPHORETIC, GC3. PT PRESENTS TACHYPNIC, TACHYCARDIA, HYPOTENSIVE, A/OXO. SPO2 92% NON REBREATHER; 132 HEART RATE. HX,RX - SEE CHART
[2019-10-22] MEDS ORDERED: cefTRIAXone 1,000 MG VIAL ONE (18:27)
--- NOTE | 2019-10-22 18:35 | NUR ---
TIME OF . PT PRONOUNCED BY DR. CHANDRA.
--- NOTE | 2019-10-22 18:46 | NUR ---
spoke to coroners office audra , milan call back .
--- NOTE | 2019-10-22 18:50 | NUR ---
dr roa spoke to daughter on the phone.
--- NOTE | 2019-10-22 18:55 | NUR ---
spoke to [facility] erum on the phone will call back , .
--- NOTE | 2019-10-22 19:01 | NUR ---
Spoke with patient's daughter Clementina and she is requesting social economist to assist with finding morturary placement. I called Jolene Hu [phone] and left a voicemail to go back.
--- NOTE | 2019-10-22 19:08 | NUR ---
RECIVED REPORT FROM ANNIKA STALEY. CONTINUATION OF CARE. PENDING CALL FROM [facility] FOR [facility].
--- NOTE | 2019-10-22 19:09 | NUR ---
gave report to nancy de la paz waiting for forensic engineer and [facility] call back.
--- NOTE | 2019-10-22 19:26 | NUR ---
SPOKE WITH JOHAN FROM [facility]. [facility] IS NOT A CANDIDATE AND CLEARED TO CONTACT [facility].
--- NOTE | 2019-10-22 19:59 | NUR ---
SPOKE WITH DAUGHTER, GAMA YORK ([phone]), PER GAMA [facility] CHOICE IS - [facility] ([phone]). WILL CALL UPON CMA OR LPN CLEARANCE.
--- NOTE | 2019-10-22 20:20 | NUR ---
REVCIVED CALL FROM [facility] AND SPOKE WITH SAMI BARRERA (WIRE TWISTER), HE GAVE PERMISSION OF RELEASE THE PT BODY TO THE CARE OF THE MORTUARY. SAMI STATED UNABLE TO GET A REFERENCE NUMBER AT THIS TIME BECAUSE THERE ARE NO [facility] [place].
--- NOTE | 2019-10-22 20:30 | NUR ---
CALL MADE TO [facility] TO ARRANGE PRODUCTION OR PLANT ENGINEER. HOME TO CALL BACK FOR ETA.
--- NOTE | 2019-10-22 21:30 | NUR ---
POST MORTEM CARE PERFORMED.
--- NOTE | 2019-10-22 21:45 | NUR ---
SPOKE WITH DR. POLK AND MADE HIM AWARE THAT PT . [phone]
--- NOTE | 2019-10-22 22:15 | NUR ---
2nd CALL MADE TO [facility] IN ATTEMPT TO GET ETA FOR HVAC COMMERCIAL SALESPERSON. NO ETA PROVIDED. WAS INFORMED THAT A PANTOGRAPH MACHINE SET UP OPERATOR WOULD CALL [facility] WITH ETA.
--- NOTE | 2019-10-22 22:38 | NUR ---
ETA 40 MINS.
--- NOTE | 2019-10-22 23:38 | NUR ---
MORTUARY STAFF AT BEDSIDE FOR BODY CELL COVERER. BODY REMOVED FROM BED 1 AT THIS TIME WITH MORTUARY STAFF.
== END 2019-10-22 18:35 | disposition expired ==
LOC: MED 18:03
DX: I46.9 Cardiac arrest, cause unspecified (principal); R09.02 Hypoxemia; I50.9 Heart failure, unspecified; Z86.73 Personal history of transient ischemic attack (TIA), and cerebral infarction without residual deficits; I11.0 Hypertensive heart disease with heart failure; F03.90 Unspecified dementia, unspecified severity, without behavioral disturbance, psychotic disturbance, mood disturbance, and anxiety; Z79.899 Other long term (current) drug therapy
CPT/HCPCS: 99285; J0696